=== PATIENT | female | born 1955 | race Caucasian/White ===

== ENCOUNTER → 2019-01-12 | Outpatient (CLI) | payer BC ==
--- NOTE | 2019-01-13 09:09 | MM ---
Reason for exam: clinical finding. History: Patient is postmenopausal. Physical Findings: Nurse Summary: 1.5cm nodule in the left breast at 10-11 o'clock (nurse kyara). MG 3D Diag Mammo W/Cad SERGEI Bilateral CC and MLO view(s) were taken. CV view(s) were taken of the left breast. There are scattered fibroglandular densities. Finding #1: There are multiple masses in both breasts. Finding #2: There are typically benign calcifications in both breasts. These results were verbally communicated with the patient and result sheet given to the patient on 01/12/19. ASSESSMENT: Incomplete: need additional imaging evaluation, BI-RAD 0 RECOMMENDATION: Ultrasound of both breasts.
--- NOTE | 2019-01-13 09:17 | USB ---
Reason for exam: additional evaluation requested from abnormal screening. History: Patient is postmenopausal. US Breast BILAT Right complete breast ultrasound includes all four quadrants, the retroareolar region and axilla. Finding demonstrates a 0.7 x 0.6 x 0.5cm questionable lipoma at 12 o'clock and a 0.7 x 0.8 x 0.5cm solid lesion at 3 o'clock. Left complete breast ultrasound includes all four quadrants, the retroareolar region and axilla. Finding demonstrates a 1.9 x 1.9 x 2.1cm solid lesion at 9 o'clock and a 0.4 x 0.3 x 0.2cm solid lesion at 9 o'clock. These results were verbally communicated with the patient and result sheet given to the patient on 01/12/19. ASSESSMENT: Suspicious, BI-RAD 4 RECOMMENDATION: Ultrasound core biopsy of both breasts. Called Dr. Zapata with mammographic findings and has scheduled an appointment for the patient for 01/27/19 at 10:[address] Coobs. Biopsy scheduled for 01/23/19 at 12:20. PRELIMINARY REPORT CALLED AND FAXED TO DR. COBOS ON 01/12/19.
== END ==
LOC: RADMAMWWP 12:39
PROVIDERS: ATTEND Internal Medicine
DX: N63.0 Unspecified lump in unspecified breast (principal); R92.8 Other abnormal and inconclusive findings on diagnostic imaging of breast
CPT/HCPCS: 77062; 77066

== ENCOUNTER → 2019-01-19 | Outpatient (CLI) | payer BC ==
[2019-01-19 12:18] VITALS: BP 123/79; PULSE 93; RESP 18; TEMP 98.3; BMI 30.7
--- NOTE | 2019-01-19 12:42 | P.GSHP ---
History of Present Illness H&P Date: 01/19/19 Chief Complaint: patient felt lump in left bresat The patient is a 63-year-old white female who was seen by her primary care doctor secondary to some nodularity in her left breast. It is located in the left inner lower area. She subsequently underwent a mammogram and bilateral breast ultrasounds. Her last mammogram was approximately 10 years ago. The mammogram revealed benign calcifications in both breasts, multiple nodularity in both breasts, and fibroglandular densities. She subsequently underwent bilateral breast ultrasounds. The right breast ultrasound revealed a 0.8 x 0.7 cm lesion at 3:00 The left breast ultrasound revealed a 1.9 1.9 cm lesion at 9:00 and a 0.4 x 0.2 cm solid lesion at 9:00. The patient states she has had some twinges of discomfort in the left breast near the area of the palpable change the face of this may be because she is checking that periodically to see if it's changed. The patient had no hsitory of trauma to the breast. She has had no infection in the breast. She has no changes of her nipples. She drinks 3-4 cups of coffee/day. She drinks diet pop daily. She does not smoke and is not exposed to secondhand smoke. She eats chocolate occasionally. Family History: maternal grandmother: colon cancer brother: colon cancer Hormonal History: menarche: 10 G6,P5, 1 stillborn, first at 29, breast fed: yes menopause: 54 BCP: none hormones: none Past surgical history: 1. D&C 2. Left breast fibroadenoma removed 3. Oral surgery for extra teeth Past Medical History: 1. depression/anxiety 2. DVT Social History: smoke: none alcohol: Occasional Drugs: Negative - Constitutional Constitutional: Denies chills, Denies fever - EENT Eyes: denies blurred vision, denies pain Ears: bilateral: tinnitus, deny: decreased hearing Ears, nose, mouth and throat: Denies headache, Denies sore throat - Breasts Breasts: bilateral: as per HPI - Cardiovascular Cardiovascular: Denies chest pain, Denies shortness of breath - Respiratory Respiratory: Denies cough, Denies 7 - Gastrointestinal Gastrointestinal: Denies abdominal pain, Denies diarrhea, Denies nausea, Denies vomiting - Genitourinary (Female) Genitourinary: Denies dysuria, Denies hematuria - Menstruation Menstruation: Reports postmenopausal - Musculoskeletal Comment: arthritis Musculoskeletal: Reports myalgias - Integumentary Integumentary: Denies pruritus, Denies rash - Neurological Neurological: Denies numbness, Denies weakness - Psychiatric Psychiatric: Reports anxiety, Reports depression - Endocrine Endocrine: Reports fatigue, Denies weight change - Hematologic/Lymphatic Comment: aspirin/day - Allergic/Immunologic Allergic/Immunologic: Reports seasonal allergies Past Medical History Additional Past Medical History / Comment(s): Hx of DVT X3 during pregnancies, took heparin History of Any Multi-Drug Resistant Organisms: None Reported Additional Past Surgical History / Comment(s): 1989 firoadenoma left breast surgery. 1999 Dilatation and curretagge Past Anesthesia/Blood Transfusion Reactions: No Reported Reaction Past Psychological History: Anxiety, Depression Smoking Status: Never smoker Past Alcohol Use History: Rare Past Drug Use History: None Reported Medications and Allergies Home Medications Medication Instructions Recorded Confirmed Type Sertraline [Zoloft] 50 mg PO DAILY 01/16/19 01/16/19 History Allergies Allergy/AdvReac Type Severity Reaction Status Date / Time No Known Allergies Allergy Verified 01/19/19 12:19 Surgical - Exam Vital Signs Temp Pulse Resp BP Pulse Ox 98.3 F 93 18 123/79 98 01/19/19 12:14 01/19/19 12:14 01/19/19 12:14 01/19/19 12:14 01/19/19 12:14 BMI 30.7 - General well developed, well nourished, no distress - Eyes normal ocular movement - ENT no hearing loss, no congestion - Neck no masses, trachea midline - Respiratory normal respiratory effort, clear to auscultation - Cardiovascular Rhythm: regular Heart Sounds: normal: S1, S2 - Abdomen Abdomen: soft, non tender, no guarding, no rigid, no rebound - Integumentary no abnormal pigmentation - Neurologic no disoriented, no combative - Musculoskeletal normal gait - Psychiatric oriented to time, oriented to person, oriented to place, speech is normal, memory intact Breast Exam: right breast exam: Multi-positional exam no dominant masses or nodules of concern, fibrocystic breast changes Right axilla: No adenopathy of concern Left breast: Multi-positional exam approximately 1.2 cm nodule freely movable in the lower inner quadrant of the left breast, fibrocystic changes, no other masses or nodules of concern Left axilla: No adenopathy of concern Results Mammogram and ultrasound results reviewed Assessment and Plan Assessment: Impression: 1. Abnormal mammogram bilateral breast 2. Abnormal ultrasound bilateral breast 3. Palpable nodule left breast 4. Fibrocystic breast changes 5. Family history of colon cancer 6. Anxiety/depression The risks and benefits of the procedure have been discussed with the patient. She understands and wishes to proceed. Plan: 1. Bilateral breast ultrasound core biopsy 2. Medical management of medical conditions 2. Follow-up approximately one week after biopsy CC: Dr. Zapata
== END ==
LOC: WWCWWP 11:57
PROVIDERS: ATTEND Surgery
DX: Z53.9 Procedure and treatment not carried out, unspecified reason (principal)

== ENCOUNTER → 2019-01-23 | Day surgery (SDC) | payer BC ==
[2019-01-23 13:22] VITALS: RESP 16; BMI 30.7
[2019-01-23 13:50] VITALS: BP 131/83; PULSE 71; TEMP 97.9
--- NOTE | 2019-01-23 16:35 | USB ---
EXAMINATION TYPE: US biopsy breast add'l VAD LT DATE OF EXAM: 01/23/2019 EXAMINATION TYPE: US biopsy breast VAD RT DATE OF EXAM: 01/23/2019 CLINICAL HISTORY: R92.8 ABN MAMMO. TECHNIQUE: Ultrasound guided core biopsy of right and left breast. COMPARISON: NONE FINDINGS: Preprocedure scanning was performed. A small hypoechoic area near the 9:00 position within the left breast corresponding to the previous findings could not be located on the current examination and this area was not attempted for biopsy. The procedure of ultrasound guided core biopsy was explained to the patient. Benefits, alternatives, and risks were discussed. An informed consent was then obtained. A timeout was performed. The patient was placed in supine positioning for imaging and for the procedure. The overlying skin was prepped and draped in usual sterile fashion. Lidocaine buffered with bicarbonate was used as anesthetic into the skin and subcutaneous tissue up to area of concern in the right breast. A adam was made with surgical scalpel. Under ultrasound guidance, a 12-gauge vacuum assisted biopsy gun device was used to obtain 6 core samples. Following this, a biopsy clip was left in lesion. Utilizing a separate set up for the left breast t patient was placed in supine positioning for imaging and for the procedure. The overlying skin was prepped and draped in usual sterile fashion. Lidocaine with epinephrine was used as anesthetic into the deeper breast tissue. Buffered lidocaine was utilized to anesthetize the skin. A adam was made with surgical scalpel. Under ultrasound guidance, a 12-gauge vacuum assisted biopsy gun device was used to obtain 6 core samples. Following this, a biopsy clip was left in lesion. The patient tolerated the procedure well without any immediate complication. The patient was kept in the radiology department for short stay after the procedure and then discharged home in stable condition. Postprocedure mammography was performed. Surgical clips are within the bilateral breasts. IMPRESSION: 1. Successful ultrasound-guided core biopsy 3:00 right breast, 9:00 left breast. Recommendations: 1. Recommendations are pending pathology results. Pathology Results: Malignant A. RIGHT BREAST AT 3:00 POSITION, NEEDLE CORE BIOPSIES: Infiltrating grade 2 adenocarcinoma consistent with infiltrating ductal carcinoma. Focal low grade DCIS. See Surgical Pathology Cancer Case Summary. Appropriately controlled immunohistochemical studies are positive for E- cadherin, Mammaglobin and ER. S100 and CK5/6 are negative in tumor cells. B. LEFT BREAST AT 9:00 POSITION, NEEDLE CORE BIOPSIES: Poorly differentiated adenocarcinoma with a dense lymphoid infiltrate consistent with infiltrating ductal carcinoma. See Surgical Pathology Cancer Case Summary. Appropriately controlled immunohistochemical studies are positive for E- cadherin. S100, Mammaglobin, ER and CK5/6 are negative in tumor cells. Recommendation Surgical consult of both breasts. MTDD
--- NOTE | 2019-01-24 07:56 | MM ---
Reason for exam: additional evaluation requested from abnormal screening. Last mammogram was performed less than 1 month ago. History: Patient is postmenopausal. MG Diagnostic Percy BI Wo CAD Bilateral CC and MLO view(s) were taken. Prior study comparison: January 12, 2019, bilateral MG 3d diag mammo w/cad SERGEI. ASSESSMENT: Post procedure mammogram for marker placement RECOMMENDATION: Ultrasound of both breasts in 6 months. PENDING PATHOLOGY RESULTS.
== END ==
LOC: RADUSWWP 11:09
PROVIDERS: ATTEND Surgery
DX: C50.811 Malignant neoplasm of overlapping sites of right female breast (principal)
CPT/HCPCS: 88305; 88342; 88341; 77066; 19083; 19084; A4648; J2001

== ENCOUNTER → 2019-01-27 | Outpatient (CLI) | payer BC ==
[2019-01-27 10:23] VITALS: BP 168/79; PULSE 86; RESP 20; TEMP 98.1; BMI 30.7
--- NOTE | 2019-01-27 11:53 | P.PN ---
Subjective Progress Note Date: 01/27/19 Principal diagnosis: Bilateral invasive breast cancer Right breast stage I a breast cancer Left breast stage IIa breast cancer The patient is a 63-year-old white female who presented for bilateral ultrasound-guided core biopsy. This was performed on . Pathology revealed the right side to be a T1 N0 M0 ER/OH positive HER-2/woodrow negative grade 2 stage I a breast cancer. The left side which was a palpable nodule was noted to be a T2 N0 M0 ER/OH positive. Positive HER-2 negative grade 3 stage IIA breast cancer. The patient has no complaints related to the procedure itself. The patient's is here with him and had a long discussion regarding possible treatment options. Treatment options range from lumpectomy plus radiation therapy plus bilateral sentinel node biopsies with possible bilateral axillary node dissections to bilateral mastectomy plus or minus reconstruction. The patient is not interested in lumpectomy. The patient wishes to have bilateral mastectomies with reconstruction. The patient is going to be scheduled to see the plastic surgeon. Risk and benefits of all the procedures have been discussed with the patient and her . It should be noted that her son is a family practice resident at [facility], a second son is just starting medical school, and future [id number] is a internal medicine resident. The pathology and treatment options will be discussed with her son as per the patient. Objective - Vital Signs Vital signs: Vital Signs Temp 98.1 F 01/27/19 10:20 Pulse 86 01/27/19 10:20 Resp 20 01/27/19 10:20 BP 168/79 01/27/19 10:20 Pulse Ox 95 01/27/19 10:20 Intake & Output 01/26/19 01/27/19 01/27/19 18:59 06:59 18:59 Weight 86.183 kg - Constitutional General appearance: Present: average body habitus - EENT Eyes: Present: EOMI ENT: Present: hearing grossly normal - Neck Neck: Present: normal ROM - Respiratory Respiratory: bilateral: CTA - Cardiovascular Rhythm: regular Heart sounds: normal: S1, S2 - Integumentary Integumentary Comment(s): Examination of the core biopsy sites reveal mild ecchymosis in each breast No evidence of hematoma No evidence of infection and the breast - Psychiatric Psychiatric: Present: A&O x's 3, appropriate affect, intact judgment & insight Assessment and Plan Assessment: Impression: 1. Patient with biopsy-proven bilateral invasive ductal breast cancer Right breast stage IA Left breast stage II a 2. Patient is going to have genetic testing performed and blood is being drawn today 3. Patient states no matter what the genetic testing and she wishes to have bilateral mastectomies 4. Patient has declined offered to meet with radiation therapy today 4. Patient understands that even if she hasn't mastectomy depending on lymph node status that it might be possible radiation would be recommended 5. History of anxiety/depression 6. Family history of colon cancer Plan: 1. Bilateral mastectomy with immediate reconstruction 2. Presentation at tumor board 3. Blood drawn for genetic testing 4. Medical clearance from Dr. Zapata Risk and benefits of the procedures have been discussed with the patient and her . They understand and wish to proceed with surgical intervention as soon as possible. Again options of lumpectomy plus radiation therapy versus mastectomy plus or minus reconstruction and sentinel node biopsy plus or minus axillary node dissection have been discussed in detail. Cc: Dr. Zapata
--- NOTE | 2019-02-14 10:04 | P.PN ---
Progress Note - Text Progress Note Date: 02/14/19 The patient's case was presented at tumor board this morning. There is recommendation that she be seen by medical oncology prior to operative intervention. There was concern that the patient may benefit from neoadjuvant chemotherapy. We've also discussed the fact that the patient has opted for bilateral mastectomy. I have called the patient and discussed this with her. She did have an appointment with medical oncology for tomorrow, however she canceled that appointment. I discussed that the neoadjuvant chemotherapy may shrink the tumor and as it is close to the chest wall this may make the operative procedure better for her. I've also discussed again the fact that she is a candidate for breast conserving surgery. I discussed with her that receiving chemotherapy prior to operative intervention would be singleton secondary to the fact that it may shrink the tumor and it is close to the chest wall, and additionally that the patient would not have the risk of chemotherapy delayed secondary to wound healing which is a potential risk of undergoing bilateral mastectomies and reconstruction. I have offered to speak to family members including her son who is a physician. The patient at this time declined all of the above. She wishes to proceed with operative intervention next week. Ida Ignacio, our nurse in women's breast cancer was present for the conversation.
== END ==
LOC: WWCWWP 09:47
PROVIDERS: ATTEND Surgery
DX: Z53.9 Procedure and treatment not carried out, unspecified reason (principal)

== ENCOUNTER → 2019-02-21 | Outpatient (CLI) | payer BC ==
--- NOTE | 2019-02-22 08:31 | ECHOF ---
Referral Reason:C50.311 Breast Ca, Z01.818 Pre Chemo MEASUREMENTS -------- HEIGHT: 167.6 cm WEIGHT: 90.7 kg BP: RVIDd: 2.7 cm (< 3.3) IVSd: 1.0 cm (0.6 - 1.1) LVIDd: 4.5 cm (3.9 - 5.3) LVPWd: 1.1 cm (0.6 - 1.1) IVSs: 1.6 cm LVIDs: 2.3 cm LVPWs: 1.6 cm LAESV Index (A-L): 23.63 ml/m Ao Diam: 2.8 cm (2.0 - 3.7) AV Cusp: 1.8 cm (1.5 - 2.6) LA Diam: 2.8 cm (2.7 - 3.8) MV EXCURSION: 14.230 mm (> 18.000) MV EF SLOPE: 70 mm/s (70 - 150) EPSS: 0.4 cm MV E Dominic: 0.65 m/s MV DecT: 143 ms MV A Dominic: 1.10 m/s MV E/A Ratio: 0.59 AR PHT: 206 ms RAP: 5.00 mmHg RVSP: 26.13 mmHg FINDINGS -------- Sinus rhythm. This was a technically good study. The left ventricular size is normal. Left ventricular wall thickness is normal. Overall left vent ricular systolic function is normal with, an EF between 55 - 60 %. The right ventricle is normal in size. Normal LA size by volume 22+/-6 ml/m2. The right atrial size is normal. Interatrial and interventricular septum intact. The aortic valve is trileaflet and appears structurally normal. Trace amount of aortic regurgitatio n. The mitral valve is normal. There is trace mitral regurgitation. The tricuspid valve appears structurally normal. Mild tricuspid regurgitation present. There is n o evidence of pulmonary hypertension. The right ventricular systolic pressure, as measured by Doppl er, is 26.13mmHg. There is no pulmonic regurgitation present. The aortic root size is normal. Normal inferior vena cava with normal inspiratory collapse consistent with estimated right atrial pre ssure of 5 mmHg. There is no pericardial effusion. CONCLUSIONS -------- 1. Sinus rhythm. 2. This was a technically good study. 3. The left ventricular size is normal. 4. Left ventricular wall thickness is normal. 5. Overall left ventricular systolic function is normal with, an EF between 55 - 60 %. 6. The right ventricle is normal in size. 7. Normal LA size by volume 22+/-6 ml/m2. 8. The right atrial size is normal. 9. Interatrial and interventricular septum intact. 10. The aortic valve is trileaflet and appears structurally normal. 11. Trace amount of aortic regurgitation. 12. The mitral valve is normal. 13. There is trace mitral regurgitation. 14. The tricuspid valve appears structurally normal. 15. Mild tricuspid regurgitation present. 16. There is no evidence of pulmonary hypertension. 17. The right ventricular systolic pressure, as measured by Doppler, is 26.13mmHg. 18. There is no pulmonic regurgitation present. 19. The aortic root size is normal. 20. Normal inferior vena cava with normal inspiratory collapse consistent with estimated right atrial pressure of 5 mmHg. 21. There is no pericardial effusion. CAFE WORKER: Yamile Atkinson RDCS
== END | disposition home or self-care (01) ==
LOC: RADECHMAIN 13:01
PROVIDERS: ATTEND Internal Medicine Hematology & Oncology
DX: Z01.818 Encounter for other preprocedural examination (principal); I07.1 Rheumatic tricuspid insufficiency; C50.311 Malignant neoplasm of lower-inner quadrant of right female breast; C50.312 Malignant neoplasm of lower-inner quadrant of left female breast
CPT/HCPCS: 93306

== ENCOUNTER 2019-02-22 09:37 | Day surgery (SDC) | payer BC ==
--- NOTE | 2019-02-22 08:03 | P.GSHP ---
History of Present Illness H&P Date: 02/22/19 CHIEF COMPLAINT: Breast cancer HISTORY OF PRESENT ILLNESS: The patient is a 63-year-old female diagnosed with breast cancer. She needs a Mediport placement for chemotherapy. PAST MEDICAL HISTORY: See list PAST SURGICAL HISTORY: See list CURRENT MEDICATIONS: See list. ALLERGIES: See list. SOCIAL HISTORY: No active tobacco or alcohol use. FAMILY HISTORY: Noncontributory. REVIEW OF ORGAN SYSTEMS: CONSTITUTIONAL: Has weight loss. PHYSICAL EXAMINATION: Vital signs: Stable GENERAL: Well developed and in no acute distress. Pleasant. HEENT: No sclera icterus. Extraocular movements grossly intact. Moist buccal mucosa. Head is atraumatic, normocephalic. Hears conversational speech. No nasal drainage. NECK: Supple without lymphadenopathy. No JV distention. CHEST: Non-labored respirations and equal bilateral excursions. CARDIOVASCULAR: Regular rate and rhythm. Palpable 2+ radial pulses. ABDOMEN: Nontender. MUSCULOSKELETAL: No clubbing, cyanosis or edema. NEUROLOGIC: No focal or lateralizing signs. PSYCH: Appropriate affect. Alert and oriented to person, place and time. ASSESSMENT: 1. Breast cancer, bilateral 2. Need for chemotherapeutic access. PLAN: 1. Agree with Port-A-Cath placement. Past Medical History Past Medical History: Cancer, Deep Vein Thrombosis (DVT), Osteoarthritis (OA) Additional Past Medical History / Comment(s): Hx of DVT X3 during pregnancies, took heparin History of Any Multi-Drug Resistant Organisms: None Reported Additional Past Surgical History / Comment(s): BILATERAL NEEDLE LOC BREAST. 1989 firoadenoma left breast surgery. 1999 Dilatation and curretagge Past Anesthesia/Blood Transfusion Reactions: No Reported Reaction Past Psychological History: Anxiety, Depression Smoking Status: Never smoker Past Alcohol Use History: Rare Past Drug Use History: None Reported - Past Family History Brother(s) Family Medical History: Deep Vein Thrombosis (DVT) Son(s) Family Medical History: Deep Vein Thrombosis (DVT) Additional Family Medical History / Comment(s): FACTOR FIVE 11 Medications and Allergies Home Medications Medication Instructions Recorded Confirmed Type Sertraline [Zoloft] 50 mg PO QAM 01/16/19 02/21/19 History Aspirin [Adult Low Dose Aspirin EC] 81 mg PO DAILY 02/21/19 02/21/19 History Allergies Allergy/AdvReac Type Severity Reaction Status Date / Time No Known Allergies Allergy Verified 02/21/19 08:43
[~2019-02-22 09:37] MED LIST: DEXAMETHASONE SOD PHOSPHATE 10 MG/ML 1 ML VIAL IV ONE; LIDOCAINE 1% 20 ML VIAL (10MG/ML) FOR IV START INTRADERMA PRN; MIDAZOLAM 2 MG/2 ML VIAL IV PRN; Pre Op ABX Message 1 EACH MISC MISCELLANE ONE; ceFAZolin IN SWFI 2 GM/20 ML SYRINGE IVP ONE; fentaNYL (PF) 50 MCG/ML 2 ML AMP IV PRN
[2019-02-22] MEDS ORDERED: fentaNYL (PF) 50 MCG/ML 2 ML AMP ONE (10:20)
[2019-02-22] MEDS ORDERED: PROPOFOL 10 MG/ML 20 ML VIAL IV ONE (10:20)
[2019-02-22] MEDS ORDERED: LIDOCAINE 1% INJ 10MG/ML (20 ML MDV) ONE (10:20)
[2019-02-22] MEDS ORDERED: MIDAZOLAM 2 MG/2 ML VIAL ONE (10:20)
[2019-02-22 10:21] VITALS: RESP 16; TEMP 98.2
[2019-02-22] MEDS: LACTATED RINGERS 1,000 ML IV SCH ×2 (10:24→10:33)
[2019-02-22] MEDS ORDERED: ONDANSETRON 4 MG/2 ML VIAL IVP ONE (10:24)
[2019-02-22] MEDS ORDERED: LIDOCAINE 1% 20 ML VIAL (10MG/ML) FOR IV START INTRADERMA ONE (10:24)
[2019-02-22] MEDS ORDERED: HEPARIN SODIUM,PORCINE 10,000 UNIT/ML 1 ML VIAL IV ONE (11:03)
[2019-02-22] MEDS ORDERED: HEPARIN SODIUM,PORCINE 100 UNIT/ML 5 ML VIAL IV ONE (11:03)
[2019-02-22] MEDS ORDERED: BUPIVACAIN-EPI 0.5%-1:200,000 30 ML VIAL SQ ONE ×3 (11:04→11:06)
--- NOTE | 2019-02-22 11:46 | P.OP ---
Date of Procedure: 02/22/19 Description of Procedure: SURGEON: HARPER DIAL MD TRAFFIC CONTROL SIGNALER: None. PREOPERATIVE DIAGNOSES: 1. Breast cancer 2. Need for chemotherapeutic access. 3. Obesity due to excess calories, BMI 32.3 4. Anxiety 5. History of multiple lower leg DVTs 6. Depressive disorder POSTOPERATIVE DIAGNOSES: 1. Breast cancer 2. Need for chemotherapeutic access. 3. Obesity due to excess calories, BMI 32.3 4. Anxiety 5. History of multiple lower leg DVTs 6. Depressive disorder PROCEDURES PERFORMED: 1. Ultrasound guided central venous access of the right internal jugular venous vein. 2. Fluoroscopic guidance for central venous access right internal jugular vein less than 1 seconds. 3. Placement of right internal jugular power port 6 Syriac by CipherApps, Xcela Plus Port ANESTHESIA: IV sedation with local. ESTIMATED BLOOD LOSS: 2 mL. SPECIMENS REMOVED: None. COMPLICATIONS: None. INDICATIONS: The patient is a 63-year-old female recently diagnosed with breast cancer. She presents for chemotherapeutic access. Benefits and risks of surgical intervention were described including bleeding, infection, mechanical problems with his port. Informed consent was obtained. DESCRIPTION OR PROCEDURE: Patient was brought into the operating room, laid in supine position. After adequate IV sedation, the chest and right neck were prepped and draped in a standard sterile fashion including the shoulder with ChloraPrep. Timeout protocol was confirmed with the surgical team regarding the patient's name, procedure to be performed including preoperative medications for which she received IV antibiotics. Bilateral SCDs were placed. An ultrasound was used to capture views of the right internal jugular vein including right carotid artery, which was patent and without thrombus along its course. The right IJ was then localized using anesthetic for the skin. A 16 Syriac needle was used to access the IJ. A guidewire was advanced into the IJ with dark nonpulsatile venous blood. Two fingerbreadths distal to the clavicle, on the lateral third, a transverse 1.5 to 2 cm incision was deepened into the skin after localizing the skin. A pocket was created for the port. The port on the back table was flushed with heparinized saline and then attached to the catheter tubing. An adapter was fastened to the actual port site over the tubing. The port easily had fit snug into the pocket. A subcutaneous tunneler was placed along the open end of the tubing and brought out through the separate stab incision. Fluoroscopic guidance confirmed no kinking along the tubing and the port site. Next, the J-wire was exchanged for a catheter sheath for which the tubing was cut to 20 cm and then advanced through the catheter sheath. The Peel-away sheath was then removed and the tubing was secured at the junction of the superior vena cava as well as the right atrium. The tubing was found to be crossed however functional. This was all done under fluoroscopic guidance under 1 seconds. Easy pullback as well as return and aspiration was obtained of the port site. The skin incision was closed using layers using 3-0 Vicryl for the subcu followed by 4-0 Monocryl in a running subcuticular fashion. At the stick site this was also reapproximated using 4-0 Monocryl. The incisions were covered with Optifoam, The skin was cleansed and Exofin liquid glue was applied. Optifoam dressing was placed over the port site. A total of 20 mL of local anesthetic was placed. At the end of the procedure, needle, sponge, and instrument count was verified correct by customer data technician. Heparin lock of 5 mL was placed. The patient was awoken and pain free and taken to the second stage postanesthesia care unit. The patient tolerated the procedure well. FINDINGS: 1. No thrombus encountered along the right carotid artery or internal jugular vein. 2. Access of the right internal jugular vein under ultrasound guidance. 3. Fluoroscopy of less than 1 seconds. Plan - Discharge Summary Discharge Rx Participant: No New Discharge Prescriptions: New Acetaminophen [Tylenol] 325 mg PO Q4H #10 tab No Action Sertraline [Zoloft] 50 mg PO QAM Aspirin [Adult Low Dose Aspirin EC] 81 mg PO DAILY Discharge Medication List Sertraline [Zoloft] 50 mg PO QAM 01/16/19 [History] Aspirin [Adult Low Dose Aspirin EC] 81 mg PO DAILY 02/21/19 [History] Acetaminophen [Tylenol] 325 mg PO Q4H #10 tab 02/22/19 [Rx] Follow up Appointment(s)/Referral(s): Harper Dial MD [STAFF PHYSICIAN] - As Needed Patient Instructions/Handouts: Implanted Venous Access Port (DC), How to Care for Your Implanted Venous Access Port (DC) Activity/Diet/Wound Care/Special Instructions: Remove dressing 02/25/19. May shower. No bathtub soaks. No lifting over 10 pounds right arm for 1 week. Do not raise right arm over shoulder to prevent malfunction of your port. Take Tylenol as needed for pain. Discharge Disposition: HOME SELF-CARE
--- NOTE | 2019-02-22 12:12 | XR ---
EXAMINATION TYPE: XR chest 1V confirm line [facility] DATE OF EXAM: 02/22/2019 COMPARISON: NONE HISTORY: Status post Port-A-Cath placement. TECHNIQUE: Single frontal view of the chest is obtained. FINDINGS: Right-sided Mediport terminates in the distal superior vena cava. No postprocedural pneumo thorax is seen. Minimal strand-like bibasilar atelectasis is present. No focal consolidation, pleural effusion or pneumothorax. Cardia mediastinal silhouette is mildly enlarged. No acute osseous patholo gy. IMPRESSION: Right-sided Mediport terminating in the distal superior vena cava with no postprocedural pneumothorax.
[2019-02-22 12:13] VITALS: BP 14/764; PULSE 72
--- NOTE | 2019-02-22 13:29 | FL ---
EXAMINATION TYPE: FL guided central line placemt HISTORY: Fluoroscopy time Impression: 1. Fluoroscopy support of 1 second provided to the referring physician.
== END 2019-02-22 12:45 | disposition home or self-care (01) ==
LOC: OR 09:37
PROVIDERS: ATTEND Surgery Plastic and Reconstructive Surgery
DX: C50.919 Malignant neoplasm of unspecified site of unspecified female breast (principal); M19.90 Unspecified osteoarthritis, unspecified site; Z86.718 Personal history of other venous thrombosis and embolism; F41.9 Anxiety disorder, unspecified; F32.9 Major depressive disorder, single episode, unspecified; E66.9 Obesity, unspecified; Z68.32 Body mass index [BMI] 32.0-32.9, adult; Z79.82 Long term (current) use of aspirin; Z79.899 Other long term (current) drug therapy
CPT/HCPCS: 77001

== ENCOUNTER → 2019-04-27 | Outpatient (CLI) | payer BC ==
--- NOTE | 2019-04-27 15:37 | P.PN ---
Subjective Progress Note Date: 04/27/19 The patient is a 63-year-old white female who was seen by her primary care doctor secondary to some nodularity in her left breast. It is located in the left inner lower area. She subsequently underwent a mammogram and bilateral breast ultrasounds. Her last mammogram was approximately 10 years ago. The mammogram revealed benign calcifications in both breasts, multiple nodularity in both breasts, and fibroglandular densities. She subsequently underwent bilateral breast ultrasounds. The right breast ultrasound revealed a 0.8 x 0.7 cm lesion at 3:00 The left breast ultrasound revealed a 1.9 1.9 cm lesion at 9:00 and a 0.4 x 0.2 cm solid lesion at 9:00. The patient states she has had some twinges of discomfort in the left breast near the area of the palpable change the face of this may be because she is checking that periodically to see if it's changed. The patient had no hsitory of trauma to the breast. She has had no infection in the breast. She has no changes of her nipples. Pathology on the right revealed a T1 N0 M0 ER/[place] positive HER-2/woodrow negative grade 2 stage IA breast cancer. The left side revealed a T2 N0 M0 ER/[place] positive HER-2/woodrow negative grade 3 stage IIA breast cancer. After presentation at tumor board and discussion with the patient and her family she opted for neoadjuvant chemotherapy. She has strongly more courses of chemotherapy to complete. She is doing well with the chemotherapy. She has lost her hair. She is planning for bilateral mastectomy, and bilateral reconstruction. This has been tentatively scheduled for July. Family History: maternal grandmother: colon cancer brother: colon cancer patient has not had a colonoscopy Hormonal History: menarche: 10 G6,P5, 1 stillborn, first at 29, breast fed: yes menopause: 54 BCP: none hormones: none Past surgical history: 1. D&C 2. Left breast fibroadenoma removed 3. Oral surgery for extra teeth Past Medical History: 1. depression/anxiety 2. DVT Social History: smoke: none alcohol: Occasional Drugs: Negative - Constitutional Constitutional: Denies chills, Denies fever - EENT Eyes: denies blurred vision, denies pain Ears: bilateral: tinnitus, deny: decreased hearing Ears, nose, mouth and throat: Denies headache, Denies sore throat - Breasts Breasts: bilateral: as per HPI - Cardiovascular Cardiovascular: Denies chest pain, Denies shortness of breath - Respiratory Respiratory: Denies cough, Denies 7 - Gastrointestinal Gastrointestinal: Denies abdominal pain, Denies diarrhea, Denies nausea, Denies vomiting; the patient does experience some diarrhea and some nausea immediately after the chemotherapy - Genitourinary (Female) Genitourinary: Denies dysuria, Denies hematuria - Menstruation Menstruation: Reports postmenopausal - Musculoskeletal Comment: arthritis Musculoskeletal: Reports myalgias - Integumentary Integumentary: Denies pruritus, Denies rash - Neurological Neurological: Denies numbness, Denies weakness - Psychiatric Psychiatric: Reports anxiety, Reports depression - Endocrine Endocrine: Reports fatigue, Denies weight change - Hematologic/Lymphatic Comment: aspirin/day - Allergic/Immunologic Allergic/Immunologic: Reports seasonal allergies Past Medical History Additional Past Medical History / Comment(s): Hx of DVT X3 during pregnancies, took heparin History of Any Multi-Drug Resistant Organisms: None Reported Additional Past Surgical History / Comment(s): 1989 firoadenoma left breast surgery. 1999 Dilatation and curretagge Past Anesthesia/Blood Transfusion Reactions: No Reported Reaction Past Psychological History: Anxiety, Depression Smoking Status: Never smoker Past Alcohol Use History: Rare Past Drug Use History: None Reported Objective - Vital Signs Vital signs: Vital Signs Temp 98.5 F 04/27/19 15:23 Pulse 80 04/27/19 15:23 Resp 18 04/27/19 15:23 BP 148/74 04/27/19 15:23 Pulse Ox 97 04/27/19 15:23 - Exam BMI 32.3 - Constitutional General appearance: Present: obese - EENT Eyes: Present: EOMI ENT: Present: hearing grossly normal - Neck Neck: Present: normal ROM - Respiratory Respiratory: bilateral: CTA - Cardiovascular Rhythm: regular Heart sounds: normal: S1, S2 - Gastrointestinal General gastrointestinal: Present: soft - Integumentary Integumentary: Present: normal turgor - Musculoskeletal Musculoskeletal: Present: gait normal - Psychiatric Psychiatric: Present: A&O x's 3, appropriate affect, intact judgment & insight - Additional findings Additional findings: Breast exam: Right breast: Multi-positional exam no discrete dominant masses or nodules of concern, fibrocystic changes Right axilla: No adenopathy of concern Left breast: Multi-positional exam no dominant masses or nodules of concern at this time, prior there was a 1.2 cm lesion in the lower inner quadrant of the left breast which is no longer palpable. Left axilla: No adenopathy of concern Assessment and Plan Assessment: Impression: 1. depression/anxiety 2. DVT 3. Bilateral breast cancer with neoadjuvant chemotherapy excellent response patient in the left breast is no longer palpable 4. obesity Plan: 1. Plan for surgical intervention after last chemotherapy which is approximately June 14 2. Repeat presentation at tumor board 3. Medical clearance The patient previously wish for bilateral mastectomy and reconstruction she is still leaning in that direction and we will have further discussion after she completes her chemotherapy. CC: Dr. Clay
== END | disposition home or self-care (01) ==
DX: Z53.9 Procedure and treatment not carried out, unspecified reason (principal)

== ENCOUNTER → 2019-06-02 | Outpatient (CLI) | payer BC ==
--- NOTE | 2019-06-02 13:58 | XR ---
EXAMINATION TYPE: XR Hip Bilateral Complete DATE OF EXAM: 06/02/2019 COMPARISON: NONE HISTORY: Pain history of breast cancer TECHNIQUE: 2 views submitted FINDINGS: There is no evidence of erosive change or acute fracture. Concentric narrowing of the joint space with hypertrophic change of the acetabulum greater on the rig ht. No definite destructive changes are seen. IMPRESSION: 1. Arthropathy correlate for femoral acetabular impingement bilaterally. No diagnostic evidence of me tastases. If high clinical suspicion correlate with bone scan.
== END | disposition home or self-care (01) ==
LOC: RADXRMAIN 13:35
PROVIDERS: ATTEND Internal Medicine Hematology & Oncology
DX: C50.312 Malignant neoplasm of lower-inner quadrant of left female breast (principal); C50.311 Malignant neoplasm of lower-inner quadrant of right female breast; F41.1 Generalized anxiety disorder; Z71.3 Dietary counseling and surveillance
CPT/HCPCS: 73521

== ENCOUNTER → 2019-06-29 | Outpatient (CLI) | payer BC ==
[2019-06-29 15:00] VITALS: BP 137/80; PULSE 97; RESP 18; TEMP 98.2; BMI 32.3
--- NOTE | 2019-06-29 15:43 | P.GSHP ---
History of Present Illness H&P Date: 06/29/19 Chief Complaint: Bilateral breast cancer Mariam is a 64-year-old white female who was initially seen in January 2019. At that time she had been noted to have some nodularity in her left breast. She subsequently underwent a mammogram and bilateral breast ultrasounds. The lata mogram revealed benign calcifications in both breast and multiple nodularity in both breasts with fibroglandular densities. She subsequently underwent bilateral breast ultrasounds. The right breast ultrasound revealed a 0.8 posterior 0.7 cm lesion at 3:00 in the left breast ultrasound revealed a 1.9 cm lesion at 9:00 and is 0.4 x 0.2 cm solid lesion at 9:00 the patient underwent bilateral ultrasound core biopsy. The right breast lesion wasn't infiltrating grade 2 adenocarcinoma consistent with infiltrating ductal carcinoma. There was focal low-grade DCIS as well. The left breast cancer at 9:00 revealed poorly differentiated adenocarcinoma with dense lymphoid infiltrate consistent with infiltrating ductal carcinoma. The right breast tumor was positive for ER and NC and negative for HER-2/woodrow the left breast tumor was negative for ER/NC and positive for HER-2/woodrow. The patient underwent neoadjuvant chemotherapy including herceptin and perjeta. She had an excellent response with the palpable lesion in the left breast becoming nonpalpable. Patient has finished her chemotherapy and is now ready to undergo for surgical intervention. She initially considered bilateral mastectomy. At this time would like to undergo bilateral lumpectomy with sentinel node biopsy possible axillary node dissection. The patient is having low back and hip pain. She did have radiographic evaluation at [facility] and reportedly there was no evidence of metastatic disease. Family history: Paternal grandmother: Colon cancer Brother: Colon cancer History: Menarche: 10 , 1 stillborn, first at 29, press-fit: Yes Menopause: 54 control pills: None Hormones: None Past surgical history: 1. D&C 2. Left breast fibroadenoma removed 3. Oral surgery for extra teeth Medical history: 1. Depression/and side. 2. DVT Social history: Smoke: Negative Alcohol: Occasional Drugs: Negative - Constitutional Constitutional: Denies chills, Denies fever - EENT Eyes: denies blurred vision, denies pain Ears: deny: decreased hearing, tinnitus Ears, nose, mouth and throat: Denies headache, Denies sore throat - Breasts Breasts: bilateral: as per HPI - Cardiovascular Cardiovascular: Denies chest pain, Denies shortness of breath - Respiratory Respiratory: Denies cough, Denies 7 - Gastrointestinal Gastrointestinal: Denies abdominal pain, Denies diarrhea, Denies nausea, Denies vomiting - Genitourinary (Female) Genitourinary: Denies dysuria, Denies hematuria - Menstruation Menstruation: Reports postmenopausal - Musculoskeletal Comment: lumbar spine and hip pain, to have physical therapy, Musculoskeletal: Reports myalgias - Integumentary Integumentary: Denies pruritus, Denies rash - Neurological Comment: Peripheral neuropathy in the feet and hands Neurological: Reports numbness, Denies weakness - Psychiatric Psychiatric: Reports anxiety, Reports depression - Endocrine Endocrine: Reports fatigue, Denies weight change - Hematologic/Lymphatic Comment: baby aspirin - Allergic/Immunologic Allergic/Immunologic: Reports seasonal allergies Past Medical History Additional Past Medical History / Comment(s): Hx of DVT X3 during pregnancies, took heparin History of Any Multi-Drug Resistant Organisms: None Reported Additional Past Surgical History / Comment(s): BILATERAL NEEDLE LOC BREAST. 1989 firoadenoma left breast surgery. 1999 Dilatation and curretagge Past Anesthesia/Blood Transfusion Reactions: No Reported Reaction Past Psychological History: Anxiety, Depression Smoking Status: Never smoker Past Alcohol Use History: Rare Past Drug Use History: None Reported Medications and Allergies Home Medications Medication Instructions Recorded Confirmed Type Sertraline [Zoloft] 50 mg PO QAM 01/16/19 06/29/19 History Aspirin [Adult Low Dose Aspirin EC] 81 mg PO DAILY 02/21/19 06/29/19 History Acetaminophen [Tylenol] 325 mg PO Q4H #10 tab 02/22/19 06/29/19 Rx Allergies Allergy/AdvReac Type Severity Reaction Status Date / Time No Known Allergies Allergy Verified 02/22/19 10:26 Surgical - Exam Vital Signs Temp Pulse Resp BP Pulse Ox 98.2 F 97 18 137/80 97 06/29/19 14:57 06/29/19 14:57 06/29/19 14:57 06/29/19 14:57 06/29/19 14:57 BMI 32.3 - General obese - Eyes normal ocular movement - ENT no hearing loss, no congestion - Neck no masses, trachea midline - Respiratory normal respiratory effort, clear to auscultation - Cardiovascular Rhythm: regular Heart Sounds: normal: S1, S2 - Abdomen Abdomen: soft - Integumentary normal turgor - Neurologic no disoriented, no combative - Musculoskeletal difficulty with gait related to low back pain, and right hip - Psychiatric oriented to time, oriented to person, oriented to place, speech is normal, memory intact Breast examination: Right breast: Multiple positional exam no dominant masses or nodules of concern, fibrocystic changes Right axilla: No adenopathy of concern Left breast: Multi-positional exam no dominant masses or nodules of concern, no evidence of tumor is palpable at this time Left axilla: No adenopathy of concern Assessment and Plan Assessment: Impression: 1. Bilateral invasive ductal breast cancer 2. Fibrocystic breast changes 3. Neoadjuvant chemotherapy with excellent response 4. Back and right hip pain 5. Depression/anxiety 6. History of DVT 7. X-rays of right hip no evidence of metastatic disease, 06-02-19 Plan: 1. Medical clearance by Dr. Mallory 2. Patient to receive physical therapy 3 right hip x-ray results 4. low back x-rays to be reviewed Risks and benefits of the surgery have been discussed with the patient. She understands and wishes to proceed. Risks include possibility of bleeding and infection reaction to the anesthetic. The possibility of positive margins and possible need for reexcision. The sentinel node biopsy will be most likely evaluated on permanent section. If we are suspicious we may consider frozen section evaluation in which case if positive nodemay do an axillary node dissection. Again she understands the risks of this which include possible decreased sensation to the inner arm. And possibility of injury to the thoracodorsal and long thoracic nerves. with winging of hte scapua. Initially we had discussed possible mastectomy with reconstruction however after the neoadjuvant chemotherapy the patient has opted for bilateral lumpectomies. CC: Kayla
== END | disposition home or self-care (01) ==
LOC: WWCWWP 14:47
PROVIDERS: ATTEND Surgery
DX: Z53.9 Procedure and treatment not carried out, unspecified reason (principal)

== ENCOUNTER 2019-07-18 07:05 | Day surgery (SDC) | payer BC ==
[2019-07-14 11:24] VITALS: BMI 32.3
[~2019-07-18 07:05] MED LIST changes: +HEPARIN SODIUM,PORCINE 5,000 UNIT/ML 1 ML VIAL SQ ONE; +HYDROmorphone 0.5 MG/0.5 ML SYRINGE IVP PRN; -LIDOCAINE 1% 20 ML VIAL (10MG/ML) FOR IV START INTRADERMA PRN; +ONDANSETRON 4 MG/2 ML VIAL IVP ONE; -ceFAZolin IN SWFI 2 GM/20 ML SYRINGE IVP ONE; -fentaNYL (PF) 50 MCG/ML 2 ML AMP IV PRN
[2019-07-18] MEDS: LACTATED RINGERS 1,000 ML IV SCH ×2 (07:34→10:58)
[2019-07-18] MEDS ORDERED: ALPRAZolam 0.25 MG TAB PO ONE (07:39)
[2019-07-18] MEDS ORDERED: LIDOCAINE 1% INJ 10MG/ML (20 ML MDV) SQ ONE ×2 (08:05→08:55)
--- NOTE | 2019-07-18 09:50 | NM ---
EXAMINATION TYPE: NM sentinel node injection DATE OF EXAM: 07/18/2019 COMPARISON: Exams dated 01/12/2019 through 01/23/2019 HISTORY: Bilateral breast cancer TECHNIQUE AND FINDINGS: The procedure of sentinel lymph node injection was explained to the patient. The benefits, alternatives, and risks were discussed. An informed consent was then obtained. Prepr ocedural timeout was performed. Overlying skin is cleaned with sterile alcohol. Following this, 494 uCi Tc99m Tilmanocept was inject ed in the upper outer aspect of the right nipple intradermally. The patient tolerated the procedure well without any immediate complication. The patient was kept in the radiology department for short stay after the procedure and then taken to surgery for surgical p rocedure what is presumed intraoperative gamma probe will be used for sentinel lymph node detection. IMPRESSION: Right breast radiotracer injection for sentinel node localization as above.
--- NOTE | 2019-07-18 09:51 | NM ---
EXAMINATION TYPE: NM sentinel node injection DATE OF EXAM: 07/18/2019 COMPARISON: Exams dated 01/12/2019 through 01/23/2019 HISTORY: Bilateral breast cancer TECHNIQUE AND FINDINGS: The procedure of sentinel lymph node injection was explained to the patient. The benefits, alternatives, and risks were discussed. An informed consent was then obtained. Prepr ocedural timeout was performed. Overlying skin is cleaned with sterile alcohol. Following this, 492 uCi Tc99m Tilmanocept was inject ed in the upper outer aspect of the left nipple intradermally. The patient tolerated the procedure well without any immediate complication. The patient was kept in the radiology department for short stay after the procedure and then taken to surgery for surgical p rocedure what is presumed intraoperative gamma probe will be used for sentinel lymph node detection. IMPRESSION: Left breast radiotracer injection for sentinel node localization as above.
[2019-07-18] MEDS ORDERED: HEPARIN SODIUM,PORCINE 5,000 UNIT/ML 1 ML VIAL SQ ONE (10:24)
--- NOTE | 2019-07-18 10:26 | P.NAPBC ---
NAPBC Queries - NAPBC Queries Was patient's case review presented at [facility] tumor board? If no, comment.: Yes Was patient's pathology reviewed at [facility]? If no, comment.: Yes Was breast conservation surgery offered? If no, comment.: Yes Was sentinel node biopsy offered? If no, comment.: Yes Was diagnosis confirmed by percutaneous core biopsy? If no, comment.: Yes Is patient mastectomy patient?: No Was a preop referral to reconstructive surgeon offered?: No [facility] Comments: bilateral breast cancer, right stage 1A, left stage 2A Clinical Stage: Pathology on the right revealed a T1 N0 M0 ER/[place] positive HER-2/woodrow negative grade 2 stage IA breast cancer. The left side revealed a T2 N0 M0 ER/DE positive HER-2/woodrow negative grade 3 stage IIA breast cancer. After presentation at tumor board and discussion with the patient and her family she opted for neoadjuvant
[2019-07-18] MEDS ORDERED: LIDOCAINE 1% INJ 10MG/ML (20 ML MDV) ONE (10:57)
[2019-07-18] MEDS ORDERED: PROPOFOL 10 MG/ML 20 ML VIAL IV ONE (10:57)
[2019-07-18] MEDS ORDERED: MIDAZOLAM 2 MG/2 ML VIAL ONE (10:57)
[2019-07-18] MEDS ORDERED: HYDROmorphone (PF) 1 MG/ML ONE (10:57)
[2019-07-18] MEDS ORDERED: SODIUM CHLORIDE 0.9% 100 ML BAG ONE (10:57)
[2019-07-18] MEDS ORDERED: PHENYLEPHRINE-0.9% NACL SYG 1 MG/10 ML SYRINGE ONE (10:57)
[2019-07-18] MEDS ORDERED: SUCCINYLCHOLINE CHLORIDE 100 MG/5 ML SYR IV ONE (10:57)
[2019-07-18] MEDS ORDERED: fentaNYL (PF) 50 MCG/ML 2 ML AMP ONE (10:57)
[2019-07-18] MEDS ORDERED: ceFAZolin 1,000 MG VIAL ONE (10:57)
[2019-07-18] MEDS ORDERED: DEXTROSE 5% IV STA ×2 (11:45)
[2019-07-18] MEDS ORDERED: METHYLENE BLUE IV STA ×2 (11:45)
[2019-07-18] MEDS ORDERED: WATER IV STA ×2 (11:45)
[2019-07-18] MEDS ORDERED: LACTATED RINGERS 1,000 ML IV ONE (14:15)
--- NOTE | 2019-07-18 14:25 | P.OP ---
Date of Procedure: 07/18/19 Preoperative Diagnosis: Bilateral breast cancer Postoperative Diagnosis: Same Procedure(s) Performed: Bilateral sentinel node biopsy and lumpectomy with onco plastic tissue transfer Anesthesia: AGNES Surgeon: Jacqueline Thornton Estimated Blood Loss (ml): 10 IV fluids (ml): 1,000 Pathology: other (Bilateral sentinel nodes, bilateral lumpectomy specimens) Condition: stable Disposition: same day Indications for Procedure: bilateral biopsy proven breast cancer Operative Findings: bilateral fatty lymph nodes, bilateral dense breast tissue Description of Procedure: The patient is a 64-year-old white female with biopsy-proven bilateral breast cancer. She received neoadjuvant chemotherapy. She is now ready for bilateral lumpectomy and bilateral sentinel node biopsy. Preoperatively the patient was seen in the radiology department where bilateral needle localization was performed. Additionally bilateral. Periareolar foci in injection was performed for sentinel node retrieval. The patient was taken to the operating room and following induction of general anesthesia both axillas were interrogated with the neoprobe. The radioactive counts in the right axilla was hard to detect and therefore was determined to use methylene blue for lymphatic mapping. 5 mL of quarter percent methylene blue were injected into the periareolar area. The breast was massaged for 3 minutes. The breast breast and axilla were prepped and draped in sterile fashion. The right breast was approached initially. An incision was made in the axilla and carried down to the axillary contents. Upon carrying it down to the axillary contents a radioactive blue lymph node was identified. The 10 second count on the radioactive node was 23,068, the background count was approximately 14. The patient did not have any other palpable adenopathy of concern on that side. After discussion with pathology it was felt that the best to forego frozen section and for permanent section. The wound was well irrigated. No evidence of bleeding was identified. Several deep 3-0 Vicryl sutures were placed. This was followed by a 4-0 Monocryl skin suture and Steri-Strips. The area of the breast lesion was approached. A circumareolar incision was made. The breast tissue was dissected free from the skin and following it medially to the area of insertion of the needle. The needle was identified and the shaft was brought into the wound. The tissue was grasped using an Allis clamp. Circumferential resection was performed down to the pectoralis major muscle. The specimen was removed and painted for orientation. Following this radiograph the specimen revealed the area of concern had been removed. Titanium clips were placed. The tissue was mobilized between the skin and the breast tissue and the subcu tenia is playing as well as on the pectoralis muscle. Approximately 20 mL of tissue was mobilized. The tissue was brought together and secured using a 3- 0 Vicryl suture. The skin was closed using 4-0 Monocryl. The patient tolerated this portion of the procedure in stable condition. All instruments and gowns and gloves were changed. The left breast was then approached. The left axilla was approached initially. Using the neoprobe the area of greatest radioactivity was identified. Incision was made in the axilla carried through the skin and subcutaneous tissue to the axillary contents. This was grasped using an Allis clamp. Using the Harmonic body incision was performed. The radioactive lymph node had a 10 second count of 4457. The background count was approximately 14. The deep tissues were closed using a Vicryl suture following irrigation. The skin was closed using a 4-0 Monocryl. The area of the breast was then approached. Secondary to the medial location it was felt that it would be best to make a incision directly over the needle. An incision was made and carried through the skin and subcutaneous tissue down to the breast tissue. The dissection was performed to the shaft of the needle which was brought out through the incision. The tissue was grasped using an Allis clamp and circumferential dissection was performed down to the area of the pectoralis major muscle. Specimen was removed and painted for orientation. Radiograph of the specimen revealed the area of concern had been removed. The tissues were mobilized between the skin and breast tissue in the subcutaneous plane as well as on the pectoralis muscle. Superior and inferior flaps were mobilized and secured together in the midline using a Vicryl suture. This filled the defect well. Approximately 20 mL of tissue was mobilized. Following this the skin was closed using a deep 4-0 Vicryl suture followed by 4-0 Monocryl. Steri-Strips were applied. The patient tolerated the procedure in stable condition. All instrument and sponge counts were correct at the end of the case.
--- NOTE | 2019-07-18 14:27 | P.DS ---
Providers Attending physician: Jacqueline Thornton Primary care physician: Poonam Garza Plan - Discharge Summary Discharge Rx Participant: No New Discharge Prescriptions: No Action Sertraline [Zoloft] 50 mg PO QAM Aspirin [Adult Low Dose Aspirin EC] 81 mg PO DAILY Acetaminophen [Tylenol] 325 mg PO Q4H #10 tab Multivitamins, Thera [Multivitamin (formulary)] 1 tab PO DAILY Discharge Medication List Sertraline [Zoloft] 50 mg PO QAM 01/16/19 [History] Aspirin [Adult Low Dose Aspirin EC] 81 mg PO DAILY 02/21/19 [History] Acetaminophen [Tylenol] 325 mg PO Q4H #10 tab 02/22/19 [Rx] Multivitamins, Thera [Multivitamin (formulary)] 1 tab PO DAILY 07/14/19 [History] Follow up Appointment(s)/Referral(s): Jacqueline Thornton MD [STAFF PHYSICIAN] - 1 Week Activity/Diet/Wound Care/Special Instructions: Do not drive today Wear bra at all times Discharge Disposition: HOME SELF-CARE
--- NOTE | 2019-07-18 14:29 | MM ---
EXAMINATION TYPE: MG pre op needle loc LT, MG pre op needle loc RT, MG surgical specimen RT, MG surgical specimen LT DATE OF EXAM: 07/18/2019 COMPARISON: Exams dated 01/12/2019 through 01/23/2019 HISTORY: Bilateral breast cancer TECHNIQUE: Needle localization with wire placement and surgical excision of the biopsy-proven bilateral breast cancer after treatment with neoadjuvant chemotherapy. FINDINGS: The procedure of needle localization with wire placement and than surgical excision was explained to the patient. Benefits, alternatives, and risks were discussed. An informed consent was then obtained. Preprocedural timeout was performed. Site A: The shortest pathway for procedure was chosen. Shortest pathway was medial to lateral approach. The overlying skin was prepped and draped in usual sterile fashion. 10 cc of 1% lidocaine was used as anesthetic into the skin and subcutaneous tissue up to the level of area of concern. A 5 cm needle was used. It was placed via a medial collateral approach under mammographic guidance. Subsequent 90 degrees mammogram show the needle to be in satisfactory position relative to the targeted area. At this point, wire was placed and the needle was withdrawn. The wire was fixed to patient's skin. Images were marked for surgeon. Site B: The shortest pathway for procedure was chosen. Shortest pathway was medial to lateral approach. The overlying skin was prepped and draped in usual sterile fashion. 10 cc of 1% lidocaine was used as anesthetic into the skin and subcutaneous tissue up to the level of area of concern. A 5 cm needle was used. It was placed via a medial to lateral approach under mammographic guidance. Subsequent 90 degrees mammogram show the needle to be in satisfactory position relative to the targeted area. At this point, wire was placed and the needle was withdrawn. The wire was fixed to patient's skin. Images were marked for surgeon. The patient tolerated the procedure well without any immediate complication. The patient was kept in the radiology department for short stay after the procedure and then taken to surgery for surgical excision. Targeted bilateral biopsy markers demarcating the known biopsy-proven bilateral breast carcinoma and wire are identified in specimen mammogram. Findings were communicated with the OR by Brii (poultry process worker) at 1402 p.m. on 07/18/2019. The patient was kept in hospital for short stay after the procedure and then discharged home in stable condition. IMPRESSION: Successful, uncomplicated needle localization with wire placement and surgical excision of bilateral biopsy markers demarcating the known biopsy- proven bilateral breast carcinoma, full pathology results to follow. Pathology Results: Malignant A. RIGHT BREAST, SENTINEL LYMPH NODE, BIOPSY: One lymph node negative for metastatic adenocarcinoma as demonstrated on H+E as well as appropriately controlled immunohistochemical studies for Cytokeratin 7 and IRISH. B. RIGHT BREAST TISSUE, LUMPECTOMY: 0.7 x 0.4 x 0.4 cm well differentiated (Grade 1) adenocarcinoma measuring approximately 0.55 cm from the closest black or blue inked margins of resection. Surrounding breast parenchyma: Atypical duct hyperplasia and intraductal papillomatosis. See note. C. LEFT BREAST, SENTINEL LYMPH NODE: One lymph node replaced by fat with slight subcapsular fibrosis negative for metastatic adenocarcinoma by H+E as well as appropriately controlled immunohistochemical studies for Cytokeratin 7 and IRISH. D. LEFT BREAST, AXILLARY CONTENTS: Two lymph nodes negative for metastatic disease. E. LEFT BREAST, LUMPECTOMY: Focal residual lobular carcinoma in situ and stromal changes consistent with prior breast biopsy cavity. See Surgical Pathology Cancer Case Summary and note. Recommendation Surgical consult of both breasts. DENISED
[2019-07-18 14:48] VITALS: TEMP 97
[2019-07-18 15:35] VITALS: RESP 18
[2019-07-18] MEDS ORDERED: HYDROcodone/APAP 5-325MG 1 EACH TAB PO ONE (16:04)
[2019-07-18 16:24] VITALS: BP 136/71; PULSE 80
== END 2019-07-18 17:00 | disposition home or self-care (01) ==
LOC: OR 07:05
PROVIDERS: ATTEND Surgery
DX: N60.91 Unspecified benign mammary dysplasia of right breast (principal); D24.1 Benign neoplasm of right breast; F32.9 Major depressive disorder, single episode, unspecified; F41.9 Anxiety disorder, unspecified; Z86.718 Personal history of other venous thrombosis and embolism; Z92.21 Personal history of antineoplastic chemotherapy; Z80.0 Family history of malignant neoplasm of digestive organs; Z79.82 Long term (current) use of aspirin; Z79.899 Other long term (current) drug therapy
CPT/HCPCS: 19301; 38525; 88342; 88307; 88341; 76098 ×2; 38792; A9520; J2250; J1644; J1100; J2405; J0690; J2001; J3010; J1170; J2370; J0330; J2704

== ENCOUNTER → 2019-08-03 | Outpatient (CLI) | payer BC ==
[2019-08-03 14:59] VITALS: BP 118/71; PULSE 87; RESP 18; TEMP 97.8; BMI 32.3
--- NOTE | 2019-08-03 15:31 | P.PN ---
Subjective Progress Note Date: 08/03/19 Principal diagnosis: Mariam is a 64-year-old white female who was diagnosed with a right breast stage I a cancer, and her left breast stage II a cancer in January of 2019. She underwent neoadjuvant chemotherapy and subsequently underwent a bilateral lumpectomy and bilateral sentinel node biopsy. Pathology did not reveal any cancer in the sentinel nodes, and the patient in the right breast lumpectomy specimen had a 0.7 cm well-differentiated grade 1 adenocarcinoma approximately 0.55 cm from the closest margin. In the left breast and no residual cancer was identified. The patient is presently taking Herceptin. And following the Herceptin she will be placed on an aromatase inhibitor. Additionally she is going to start radiation therapy in approximately 2 weeks. Physical examination: Lungs: Clear Heart: Regular rate and rhythm Right breast: Incision clean and dry, axillary incision clean and dry Left breast: Incision clean and dry Left axilla: Incision clean and dry Impression/Plan 1. Patient doing well status post bilateral breast lumpectomy and sentinel node biopsies 2. Patient continuing on Herceptin 3. Patient to start aromatase inhibitor following the radiation therapy and Herceptin 4. Radiation therapy in 2 weeks 5. Patient to follow up here in 1 month Cc: Dr. Mulligan Objective - Vital Signs Vital signs: Vital Signs Temp 97.8 F 08/03/19 14:57 Pulse 87 08/03/19 14:57 Resp 18 08/03/19 14:57 BP 118/71 08/03/19 14:57 Pulse Ox 96 08/03/19 14:57 Intake & Output 08/02/19 08/03/19 08/03/19 18:59 06:59 18:59 Weight 90.718 kg
== END | disposition home or self-care (01) ==
LOC: WWCWWP 14:51
PROVIDERS: ATTEND Surgery
DX: Z53.9 Procedure and treatment not carried out, unspecified reason (principal)

== ENCOUNTER → 2019-08-15 | Outpatient (CLI) | payer BC ==
--- NOTE | 2019-08-16 09:58 | ECHOF ---
Referral Reason:C50.312 Breast Ca MEASUREMENTS -------- HEIGHT: 167.6 cm WEIGHT: 90.7 kg BP: 129/65 RVIDd: 2.7 cm (< 3.3) IVSd: 1.0 cm (0.6 - 1.1) LVIDd: 4.6 cm (3.9 - 5.3) LVPWd: 1.0 cm (0.6 - 1.1) IVSs: 1.6 cm LVIDs: 3.1 cm LVPWs: 1.5 cm LA Diam: 2.9 cm (2.7 - 3.8) LAESV Index (A-L): 18.39 ml/m Ao Diam: 3.3 cm (2.0 - 3.7) AV Cusp: 2.0 cm (1.5 - 2.6) MV EXCURSION: 15.293 mm (> 18.000) MV EF SLOPE: 78 mm/s (70 - 150) EPSS: 0.6 cm MV E Dominic: 0.65 m/s MV DecT: 256 ms MV A Dominic: 0.84 m/s MV E/A Ratio: 0.77 AR PHT: 593 ms RAP: 5.00 mmHg RVSP: 27.02 mmHg TAPSE: 24.34 mm FINDINGS -------- Sinus rhythm with extra systolic beats. This was a technically adequate study. The left ventricular size is normal. Left ventricular wall thickness is normal. Overall left vent ricular systolic function is normal with, an EF between 60 - 65 %. The diastolic filling pattern is normal for the age of the patient 10.10. The right ventricle is normal in size. Normal LA size by volume 22+/-6 ml/m2. The right atrium is normal in size. Interatrial and interventricular septum intact. The aortic valve is trileaflet and appears structurally normal. There is mild aortic regurgitation. Mild mitral regurgitation is present. Mild tricuspid regurgitation present. Right ventricular systolic pressure is normal at < 35 mmHg. The pulmonic valve was not well visualized. The aortic root size is normal. Normal inferior vena cava with normal inspiratory collapse consistent with estimated right atrial pre ssure of 5 mmHg. There is no pericardial effusion. CONCLUSIONS -------- 1. Sinus rhythm with extra systolic beats. 2. This was a technically adequate study. 3. The left ventricular size is normal. 4. Left ventricular wall thickness is normal. 5. Overall left ventricular systolic function is normal with, an EF between 60 - 65 %. 6. The diastolic filling pattern is normal for the age of the patient 10.10 7. The right ventricle is normal in size. 8. Normal LA size by volume 22+/-6 ml/m2. 9. The right atrium is normal in size. 10. Interatrial and interventricular septum intact. 11. The aortic valve is trileaflet and appears structurally normal. 12. There is mild aortic regurgitation. 13. Mild mitral regurgitation is present. 14. Mild tricuspid regurgitation present. 15. Right ventricular systolic pressure is normal at < 35 mmHg. 16. The pulmonic valve was not well visualized. 17. The aortic root size is normal. 18. Normal inferior vena cava with normal inspiratory collapse consistent with estimated right atrial pressure of 5 mmHg. 19. There is no pericardial effusion. JIG AND FIXTURE REPAIRER: Tala Holguin RDCS
== END | disposition home or self-care (01) ==
LOC: RADECHMAIN 14:57
PROVIDERS: ATTEND Internal Medicine Hematology & Oncology
DX: Z01.818 Encounter for other preprocedural examination (principal); C50.312 Malignant neoplasm of lower-inner quadrant of left female breast; I08.3 Combined rheumatic disorders of mitral, aortic and tricuspid valves
CPT/HCPCS: 93306

== ENCOUNTER → 2020-02-05 | Outpatient (CLI) | payer BC ==
--- NOTE | 2020-02-06 09:00 | ECHOF ---
Referral Reason:C50.312 Breast CA Z01.818 Chemo exposure MEASUREMENTS -------- HEIGHT: 167.6 cm WEIGHT: 90.7 kg BP: RVIDd: 2.4 cm (< 3.3) IVSd: 1.3 cm (0.6 - 1.1) LVIDd: 3.1 cm (3.9 - 5.3) LVPWd: 1.5 cm (0.6 - 1.1) IVSs: 2.0 cm LVIDs: 2.3 cm LVPWs: 2.0 cm LAESV Index (A-L): 26.84 ml/m Ao Diam: 3.5 cm (2.0 - 3.7) AV Cusp: 1.9 cm (1.5 - 2.6) MV EXCURSION: 14.577 mm (> 18.000) MV EF SLOPE: 70 mm/s (70 - 150) EPSS: 0.6 cm MV E Dominic: 0.74 m/s MV DecT: 194 ms MV A Dominic: 0.83 m/s MV E/A Ratio: 0.89 AR PHT: 583 ms RAP: 5.00 mmHg RVSP: 39.25 mmHg FINDINGS -------- Sinus rhythm. This was a technically adequate study. The left ventricular size is normal. There is mild concentric left ventricular hypertrophy. Overa ll left ventricular systolic function is normal with, an EF between 55 - 60 %. The diastolic fillin g pattern is normal for the age of the patient 12.53. The right ventricle is normal in size. Normal LA size by volume 22+/-6 ml/m2. The right atrium was not well visualized. Interatrial and interventricular septum intact. There is mild aortic valve sclerosis. Trace amount of aortic regurgitation. There is no evidence of aortic stenosis. There is trace mitral regurgitation. Mild tricuspid regurgitation present. There is mild pulmonary hypertension. The right ventricular systolic pressure, as measured by Doppler, is 39.25mmHg. There is no pulmonic regurgitation present. The aortic root size is normal. IVC Not well visulized. There is no pericardial effusion. CONCLUSIONS -------- 1. Sinus rhythm. 2. This was a technically adequate study. 3. The left ventricular size is normal. 4. There is mild concentric left ventricular hypertrophy. 5. Overall left ventricular systolic function is normal with, an EF between 55 - 60 %. 6. The diastolic filling pattern is normal for the age of the patient 12.53 7. The right ventricle is normal in size. 8. Normal LA size by volume 22+/-6 ml/m2. 9. The right atrium was not well visualized. 10. Interatrial and interventricular septum intact. 11. There is mild aortic valve sclerosis. 12. Trace amount of aortic regurgitation. 13. There is no evidence of aortic stenosis. 14. There is trace mitral regurgitation. 15. Mild tricuspid regurgitation present. 16. There is mild pulmonary hypertension. 17. The right ventricular systolic pressure, as measured by Doppler, is 39.25mmHg. 18. There is no pulmonic regurgitation present. 19. The aortic root size is normal. 20. IVC Not well visulized. 21. There is no pericardial effusion. ESTHETICS INSTRUCTOR: Cecilia Angela RDCS
== END | disposition home or self-care (01) ==
LOC: RADECHMAIN 10:58
PROVIDERS: ATTEND Internal Medicine Hematology & Oncology
DX: I51.7 Cardiomegaly (principal); I08.3 Combined rheumatic disorders of mitral, aortic and tricuspid valves; I27.20 Pulmonary hypertension, unspecified; C50.312 Malignant neoplasm of lower-inner quadrant of left female breast; Z01.818 Encounter for other preprocedural examination; Z91.048 Other nonmedicinal substance allergy status
CPT/HCPCS: 93306

== ENCOUNTER → 2020-07-11 | Outpatient (CLI) | payer BC ==
--- NOTE | 2020-07-11 14:31 | MM ---
Reason for exam: additional evaluation requested from prior study. Last mammogram was performed 1 year and 6 months ago. History: Patient is postmenopausal and has history of breast cancer at age 64. Malignant MG pre op needle loc LT of the left breast, July 18, 2019. Malignant MG pre op needle loc RT of the right breast, July 18, 2019. Lumpectomy of the left breast, July 18, 2019. Lumpectomy of the right breast, July 18, 2019. Malignant US biopsy breast add'l VAD LT of the left breast, January 23, 2019. Malignant US biopsy breast VAD RT of the right breast, January 23, 2019. Physical Findings: Nurse Summary: 1.5cm nodule in the right breast at 2 o'clock (nurse TM). MG 3D Diag Mammo W/Cad SERGEI Bilateral CC and MLO view(s) were taken. Spot compression CC view(s) were taken of the left breast. Prior study comparison: January 23, 2019, bilateral MG diagnostic markel BI wo CAD. January 12, 2019, bilateral MG 3d diag mammo w/cad SERGEI. There are scattered fibroglandular densities. Bilateral post surgical changes. No significant new findings when compared with previous films. These results were verbally communicated with the patient and result sheet given to the patient on 07/11/20. ASSESSMENT: Benign, BI-RAD 2 RECOMMENDATION: Ultrasound of the left breast in 3 months.
--- NOTE | 2020-07-11 14:34 | USB ---
Reason for exam: additional evaluation requested from prior study. History: Patient is postmenopausal and has history of breast cancer at age 64. Malignant MG pre op needle loc LT of the left breast, July 18, 2019. Malignant MG pre op needle loc RT of the right breast, July 18, 2019. Lumpectomy of the left breast, July 18, 2019. Lumpectomy of the right breast, July 18, 2019. Malignant US biopsy breast add'l VAD LT of the left breast, January 23, 2019. Malignant US biopsy breast VAD RT of the right breast, January 23, 2019. US Breast BILAT Left complete breast ultrasound includes all four quadrants, the retroareolar region and axilla. Finding demonstrates a 2.3 x 2.0 x 0.2cm fluid at 7 o'clock, may be internal nodules. Right complete breast ultrasound includes all four quadrants, the retroareolar region and axilla. Finding demonstrates post surgical dense/scar tissue, no mass at 3 o'clock. These results were verbally communicated with the patient and result sheet given to the patient on 07/11/20. ASSESSMENT: Probably benign, BI-RAD 3 RECOMMENDATION: Ultrasound of the left breast in 3 months.
== END | disposition home or self-care (01) ==
LOC: RADMAMWWP 10:24
PROVIDERS: ATTEND Surgery
DX: Z08 Encounter for follow-up examination after completed treatment for malignant neoplasm (principal); Z85.3 Personal history of malignant neoplasm of breast
CPT/HCPCS: 77062; 77066

== ENCOUNTER → 2020-07-12 | Outpatient (CLI) | payer BC ==
[2020-07-12 15:06] VITALS: BP 131/84; PULSE 87; RESP 16; TEMP 98.5
--- NOTE | 2020-07-12 15:16 | P.PN ---
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 At that time she had been noted to have some nodularity in her left breast. She subsequently underwent a mammogram and bilateral breast ultrasounds. The mammogram revealed benign calcifications in both breast and multiple nodularity in both breasts with fibroglandular densities. She subsequently underwent bilateral breast ultrasounds. The right breast ultrasound revealed a 0.8 posterior 0.7 cm lesion at 3:00 in the left breast ultrasound revealed a 1.9 cm lesion at 9:00 and is 0.4 x 0.2 cm solid lesion at 9:00 the patient underwent bilateral ultrasound core biopsy. The right breast lesion wasn't infiltrating grade 2 adenocarcinoma consistent with infiltrating ductal carcinoma. There was focal low-grade DCIS as well. The left breast cancer at 9:00 revealed poorly differentiated adenocarcinoma with dense lymphoid infiltrate consistent with infiltrating ductal carcinoma. The right breast tumor was positive for ER and HI and negative for HER-2/woodrow the left breast tumor was negative for ER/HI and positive for HER-2/woodrow. The patient underwent neoadjuvant chemotherapy including herceptin and perjeta. She had an excellent response with the palpable lesion in the left breast becoming nonpalpable. Patient finished her chemotherapy underwent for surgical intervention. She initially considered bilateral mastectomy. However, she underwent bilateral lumpectomy and sentinal node biopsy on July 18, 2020. Pathology did not reveal any tumor in the sentinel lymph nodes. In the right breast lumpectomy specimen had a 0.7 cm well-differentiated grade 1 adenocarcinoma proximally 0.55 cm from the closest margin. In the left breast there was no residual cancer identified. The patient finished Herceptin in February of this year. She had bilateral radiation therapy which she finished in September. She is on an antiestrogen medication at this time. She is not concerned about any lumps masses or nodules in her breast. She does not complain of any breast pain. She is not had any complaints of any nipple discharge or skin changes of her progress. She underwent a bilateral mammogram on . This revealed no lesions of concern in the right breast in the left breast and ultrasound was recommended and ultrasound was performed on the same day which revealed a 2.3 x 2 cm fluid collection at the 7 o'clock position this was felt to be most likely related to postoperative changes of a benign BIRADS 3 and ultrasound of the left breast in 3 months was recommended. Family history: Paternal grandmother: Colon cancer Brother: Colon cancer History: Menarche: 10 , 1 stillborn, first at 29, press-fit: Yes Menopause: 54 control pills: None Hormones: None Past surgical history: 1. D&C 2. Left breast fibroadenoma removed 3. Oral surgery for extra teeth 4. Bilateral lumpectomy and sentinel node biopsy Medical history: 1. Depression/anxiety. 2. DVT Social history: Smoke: Negative Alcohol: Occasional Drugs: Negative - Constitutional Constitutional: Denies chills, Denies fever - EENT Eyes: denies blurred vision, denies pain Ears: deny: decreased hearing, tinnitus Ears, nose, mouth and throat: Denies headache, Denies sore throat - Breasts Breasts: bilateral: as per HPI - Cardiovascular Cardiovascular: Denies chest pain, Denies shortness of breath - Respiratory Respiratory: Denies cough - Gastrointestinal Gastrointestinal: Denies abdominal pain, Denies diarrhea, Denies nausea, Denies vomiting - Genitourinary (Female) Genitourinary: Denies dysuria, Denies hematuria - Menstruation Menstruation: Reports postmenopausal - Musculoskeletal Comment: lumbar spine and hip pain, to have physical therapy, Musculoskeletal: Reports myalgias - Integumentary Integumentary: Denies pruritus, Denies rash - Neurological Comment: Peripheral neuropathy in the feet and hands Neurological: Reports numbness, Denies weakness - Psychiatric Psychiatric: Reports anxiety, Reports depression - Endocrine Endocrine: Reports fatigue, Denies weight change - Hematologic/Lymphatic Comment: baby aspirin - Allergic/Immunologic Allergic/Immunologic: Reports seasonal allergies Objective - Exam BMI 33.1 - Constitutional General appearance: Present: average body habitus - EENT Eyes: Present: EOMI ENT: Present: hearing grossly normal - Neck Neck: Present: normal ROM - Respiratory Respiratory: bilateral: CTA - Cardiovascular Rhythm: regular Heart sounds: normal: S1, S2 - Gastrointestinal General gastrointestinal: Present: soft - Integumentary Integumentary: Present: normal turgor - Musculoskeletal Musculoskeletal: Present: gait normal - Psychiatric Psychiatric: Present: A&O x's 3, appropriate affect, intact judgment & insight - Additional findings Additional findings: breast exam: BRA: 40C inspection: Port in place right chest wall, well-healed scars bilateral breast from prior surgery Palpation: Right breast: Multi-positional exam fibrocystic changes no dominant mass or nodules of concern, well-healed scar from prior surgery no evidence of recurrent cancer Right axilla: No adenopathy of concern Left breast: Multi-positional exam fibrocystic changes, no dominant masses or nodules of concern, well-healed scars from. This surgery Evidence of recurrent cancer Left axilla, no adenopathy of concern Assessment and Plan Assessment: Impression: 1. Patient status post bilateral mastectomy and sentinel node biopsy for stage I a right breast cancer and stage IIA left breast cancer in January 2019 2. Patient status post chemotherapy, positively on estrogen receptor mona 3. Patient status post radiation therapy 4. Patient with Port-A-Cath still in place would like to have this removed 5. Status post recent bilateral mammogram and ultrasound, ultrasound of the left breast in 3 months recommended Plan: 1. Port-A-Cath removal 2. Continue estrogen mona 3. Patient to follow up here in 3 months time Cc: Dr. Garza encounter 25 minutes, > 50% of time in planning and counselling
== END | disposition home or self-care (01) ==
LOC: WWCWWP 14:52
PROVIDERS: ATTEND Surgery
DX: Z53.9 Procedure and treatment not carried out, unspecified reason (principal)

== ENCOUNTER → 2020-10-14 | Outpatient (CLI) | payer BC ==
--- NOTE | 2020-10-15 08:06 | USB ---
Reason for exam: follow-up at short interval from prior study. History: Patient is postmenopausal and has history of breast cancer at age 64. Malignant MG pre op needle loc LT of the left breast, July 18, 2019. Malignant MG pre op needle loc RT of the right breast, July 18, 2019. Lumpectomy of the left breast, July 18, 2019. Lumpectomy of the right breast, July 18, 2019. Malignant US biopsy breast add'l VAD LT of the left breast, January 23, 2019. Malignant US biopsy breast VAD RT of the right breast, January 23, 2019. Physical Findings: Nurse Summary: bilateral thick, movable (nurse dw). US Breast Limited LT Left limited breast ultrasound including focal area of concern, retroareolar and axilla demonstrates a 1.4 x 0.3 x 1.7cm fluid collection at 7 o'clock, decreased in size from 07/11/20, suspect resolving seroma. These results were verbally communicated with the patient and result sheet given to the patient on 10/14/20. ASSESSMENT: Benign, BI-RAD 2 RECOMMENDATION: Follow-up diagnostic mammogram of both breasts in 9 months. Back on schedule for July 2021.
== END | disposition home or self-care (01) ==
LOC: RADUSWWP 14:21
PROVIDERS: ATTEND Surgery
DX: Z08 Encounter for follow-up examination after completed treatment for malignant neoplasm (principal); Z85.3 Personal history of malignant neoplasm of breast

== ENCOUNTER → 2021-07-30 | Outpatient (CLI) | payer BC ==
--- NOTE | 2021-08-06 08:34 | MM ---
Reason for exam: additional evaluation requested from prior study. Last mammogram was performed 1 year and 1 month ago. History: Patient is postmenopausal and has history of breast cancer at age 64. Malignant MG pre op needle loc LT of the left breast, July 18, 2019. Malignant MG pre op needle loc RT of the right breast, July 18, 2019. Lumpectomy of the left breast, July 18, 2019. Lumpectomy of the right breast, July 18, 2019. Malignant US biopsy breast add'l VAD LT of the left breast, January 23, 2019. Malignant US biopsy breast VAD RT of the right breast, January 23, 2019. Physical Findings: Nurse did not find any significant physical abnormalities on exam. MG 3D Diag Mammo W/Cad SERGEI Bilateral CC and MLO view(s) were taken. XCCL view(s) were taken of the right breast. Prior study comparison: July 11, 2020, bilateral MG 3d diag mammo w/cad SERGEI. January 23, 2019, bilateral MG diagnostic markel BI wo CAD. New indeterminate calcifications right breast. Biopsy recommended. Post operative changes bilateral breast. Stable skin thickening. These results were verbally communicated with the patient and result sheet given to the patient on 07/30/21. ASSESSMENT: Suspicious, BI-RAD 4 RECOMMENDATION: Stereotactic core biopsy of both breasts. Called office with mammographic findings and has scheduled an appointment for the patient for 09/12/21 at 2:[address] Thornton. Biopsy scheduled for 09/04/21 at 8:00. PRELIMINARY REPORT CALLED AND FAXED TO DR. THORNTON ON 08/06/21.
== END | disposition home or self-care (01) ==
LOC: RADMAMWWP 14:08
PROVIDERS: ATTEND Surgery
DX: R92.8 Other abnormal and inconclusive findings on diagnostic imaging of breast (principal); Z80.3 Family history of malignant neoplasm of breast
CPT/HCPCS: 77062; 77066

== ENCOUNTER 2021-09-04 08:00 | Day surgery (SDC) | payer BC ==
[2021-09-04 07:52] VITALS: RESP 16
[2021-09-04 09:09] VITALS: BP 131/67; PULSE 67; TEMP 98.1
--- NOTE | 2021-09-04 09:09 | P.PCN ---
Date of Procedure: 09/04/21 Preoperative Diagnosis: Microcalcifications of concern right breast Postoperative Diagnosis: Same Procedure(s) Performed: Stereotactic core biopsy right breast Anesthesia: local Surgeon: Jacqueline Thornton Pathology: other (Breast tissue/radiograph of specimen reveals microcalcifications of concern) Condition: stable Disposition: same day Indications for Procedure: Microcalcifications of concern right breast Operative Findings: Radiographic specimen reveals microcalcifications of concern Description of Procedure: Mariam is a 66-year-old white female who was noted on a mammogram of [phone] of microcalcifications of concern in the right breast. Stereotactic core biopsy was recommended. Alternatives such as watchful waiting or open biopsy were considered but not recommended. Risks and benefits of the procedure were discussed with the patient. She wished to proceed with stereotactic core biopsy. Risk include but are not limited to bleeding, infection, reaction to the anesthetic. The patient was taken to stereotactic core biopsy room. She was positioned prone on the lower rad table. A roofing contractor film was obtained. The area of concern was identified. A CC from below approach was utilized. The area was targeted. Following this the breast was prepped using Betadine. 20 mL of 1% lidocaine were used to anesthetize the area of concern. A 9-gauge vacuum-assisted core rotating biopsy needle was driven to the correct coordinates. Prefire films were obtained. The needle was noted to be in the correct location. The needle was fired. Post fire films were obtained. The needle was noted to be in the correct location. 14 core biopsies were obtained. Radiograph of the specimen revealed microcalcifications of concern were obtained. A secure jacoby Top-bowling ball grader and marker was placed. The patient tolerated the procedure in stable condition. The specimen was sent to pathology. The patient will follow-up with Dr. Lebron next week.
== END 2021-09-04 09:30 | disposition home or self-care (01) ==
LOC: RADMAMWWP 08:00
PROVIDERS: ATTEND Surgery
DX: R92.0 Mammographic microcalcification found on diagnostic imaging of breast (principal)
CPT/HCPCS: 88305; 19081; J2001

== ENCOUNTER → 2021-09-04 | Outpatient (CLI) | payer BC ==
--- NOTE | 2021-09-04 08:15 | P.PN ---
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 At that time she had been noted to have some nodularity in her left breast. She subsequently underwent a mammogram and bilateral breast ultrasounds. The mammogram revealed benign calcifications in both breast and multiple nodularity in both breasts with fibroglandular densities. She subsequently underwent bilateral breast ultrasounds. The right breast ultrasound revealed a 0.8 posterior 0.7 cm lesion at 3:00 in the left breast ultrasound revealed a 1.9 cm lesion at 9:00 and is 0.4 x 0.2 cm solid lesion at 9:00 the patient underwent bilateral ultrasound core biopsy. The right breast lesion was infiltrating grade 2 adenocarcinoma consistent with infiltrating ductal carcinoma. There was focal low-grade DCIS as well. The left breast cancer at 9:00 revealed poorly differentiated adenocarcinoma with dense lymphoid infiltrate consistent with infiltrating ductal carcinoma. The right breast tumor was positive for ER and SD and negative for HER-2/woodrow the left breast tumor was negative for ER/SD and positive for HER-2/woodrow. The patient underwent neoadjuvant chemotherapy including herceptin and perjeta. She had an excellent response with the palpable lesion in the left breast becoming nonpalpable. Patient finished her chemotherapy underwent for surgical intervention. She initially considered bilateral mastectomy. However, she underwent bilateral lumpectomy and sentinal node biopsy on July 18, 2020. Pathology did not reveal any tumor in the sentinel lymph nodes. In the right breast lumpectomy specimen had a 0.7 cm well-differentiated grade 1 adenocarcinoma proximally 0.55 cm from the closest margin. In the left breast there was no residual cancer identified. The patient finished Herceptin. She had bilateral radiation therapy. She was on an antiestrogen medication but stopped this secondary to bone pain. She is not concerned about any lumps masses or nodules in her breast. She does not complain of any breast pain. She is not had any complaints of any nipple discharge or skin changes of her progress. She had a bilateral mammogram on [phone]. This revealed new indeterminate calcifications in the right breast. Biopsy was recommended. Additionally Family history: Paternal grandmother: Colon cancer Brother: Colon cancer patient: bilateral breast cancer History: Menarche: 10 , 1 stillborn, first at 29, press-fit: Yes Menopause: 54 control pills: None Hormones: None Past surgical history: 1. D&C 2. Left breast fibroadenoma removed 3. Oral surgery for extra teeth 4. Bilateral lumpectomy and sentinel node biopsy Medical history: 1. Depression/anxiety. 2. DVT Social history: Smoke: Negative Alcohol: Occasional Drugs: Negative - Constitutional Constitutional: Denies chills, Denies fever - EENT Eyes: denies blurred vision, denies pain Ears: deny: decreased hearing, tinnitus Ears, nose, mouth and throat: Denies headache, Denies sore throat - Breasts Breasts: bilateral: as per HPI - Cardiovascular Cardiovascular: Denies chest pain, Denies shortness of breath - Respiratory Respiratory: Denies cough - Gastrointestinal Gastrointestinal: Denies abdominal pain, Denies diarrhea, Denies nausea, Denies vomiting - Genitourinary (Female) Genitourinary: Denies dysuria, Denies hematuria - Menstruation Menstruation: Reports postmenopausal - Musculoskeletal Comment: lumbar spine and hip pain, to have physical therapy, Musculoskeletal: Reports myalgias - Integumentary Integumentary: Denies pruritus, Denies rash - Neurological Comment: Peripheral neuropathy in the feet and hands Neurological: Reports numbness, Denies weakness - Psychiatric Psychiatric: Reports anxiety, Reports depression - Endocrine Endocrine: Reports fatigue, Denies weight change - Hematologic/Lymphatic Comment: baby aspirin - Allergic/Immunologic Allergic/Immunologic: Reports seasonal allergies Objective - Constitutional General appearance: Present: cooperative - EENT Eyes: Present: EOMI ENT: Present: hearing grossly normal - Neck Neck: Present: normal ROM - Respiratory Respiratory: bilateral: CTA - Cardiovascular Heart sounds: normal: S1, S2 - Gastrointestinal General gastrointestinal: Present: soft - Integumentary Integumentary: Present: normal turgor - Musculoskeletal Musculoskeletal: Present: gait normal - Psychiatric Psychiatric: Present: A&O x's 3, appropriate affect, intact judgment & insight - Additional findings Additional findings: Breast Exam: BRA: 40C inspection: Postoperative changes Palpation: Right breast: Multi-positional exam fibrocystic changes, postop changes, increased fullness in the lower medial aspect Right axilla: No adenopathy of concern Left breast: Multi-positional exam fibrocystic changes postop changes Left axilla: No adenopathy of concern Assessment and Plan Assessment: Impression: 1. Patient status post bilateral lumpectomy sentinel node biopsy and radiation therapy for breast carcinoma 2. Abnormal mammogram right breast 3. Anxiety/depression 4. DVT in Plan: 1. Stereotactic core biopsy right breast Risk and benefits to procedure discussed with the patient and her . They understand and wish to proceed. Risks include but are not limited to bleeding, infection, reaction to the anesthetic. If the area of concern is discordant or not adequately sampled open biopsy may be recommended. Cc: Dr. Garza
--- NOTE | 2021-09-04 12:16 | MM ---
Mariam is a 66-year-old white female who was noted on a mammogram of [id number] to have microcalcifications of concern in the right breast. Stereotactic core biopsy was recommended. Alternatives such as watchful waiting or open biopsy were considered but not recommended. Risks and benefits of the procedure were discussed with the patient. She wished to proceed with stereotactic core biopsy. Risk include but are not limited to bleeding, infection, reaction to the anesthetic. The patient was taken to stereotactic core biopsy room. She was positioned prone on the lo-rad table. A christmas tree farm crew boss film was obtained. The area of concern was identified. A CC from below approach was utilized. The area was targeted. Following this the breast was prepped using Betadine. 20 mL of 1% lidocaine were used to anesthetize the area of concern. A 9-gauge vacuum-assisted core rotating biopsy needle was driven to the correct coordinates. Prefire films were obtained. The needle was noted to be in the correct location. The needle was fired. Post fire films were obtained. The needle was noted to be in the correct location. 14 core biopsies were obtained. Radiograph of the specimen revealed microcalcifications of concern were obtained. A secure jacoby Top-clipping marker was placed. Radiograph confirmed the marker to be in the correct location. The patient tolerated the procedure in stable condition. The specimen was sent to pathology. The patient will follow-up with Dr. Lebron next week. GENO
== END ==
LOC: WWCWWP 07:24
PROVIDERS: ATTEND Surgery
DX: F41.9 Anxiety disorder, unspecified (principal); F32.A Depression, unspecified; Z86.718 Personal history of other venous thrombosis and embolism; Z98.890 Other specified postprocedural states; Z85.3 Personal history of malignant neoplasm of breast
CPT/HCPCS: 19081; A4648

== ENCOUNTER → 2021-09-12 | Outpatient (CLI) | payer BC ==
[2021-09-12 14:37] VITALS: BP 163/88; PULSE 89; RESP 18; TEMP 98.5
--- NOTE | 2021-09-12 14:54 | P.PN ---
Subjective Progress Note Date: 09/12/21 Principal diagnosis: fibrocystic breast tissue on stero biopsy of the right breast Stephanie is a 66-year-old white female status post posterior tactic core biopsy of the right breast performed on . Pathology revealed fibrous scar with microcalcifications. No cancer was identified. The patient tolerated the procedure without difficulty. Objective - Vital Signs Vital signs: Vital Signs Temp 98.5 F 09/12/21 14:35 Pulse 89 09/12/21 14:35 Resp 18 09/12/21 14:35 BP 163/88 09/12/21 14:35 Pulse Ox 98 09/12/21 14:35 Intake & Output 09/11/21 09/12/21 09/12/21 18:59 06:59 18:59 Weight 86.183 kg - Constitutional General appearance: Present: cooperative - EENT Eyes: Present: EOMI ENT: Present: hearing grossly normal - Neck Neck: Present: normal ROM - Cardiovascular Heart sounds: normal: S1, S2 - Integumentary Integumentary Comment(s): Biopsy site right breast mild ecchymosis no evidence of infection Integumentary: Present: normal turgor - Musculoskeletal Musculoskeletal: Present: gait normal - Psychiatric Psychiatric: Present: A&O x's 3, appropriate affect, intact judgment & insight Assessment and Plan Assessment: Impression: Patient has requested a desire to have Port-A-Cath removed she will consider this the first of the year Patient is also question whether she should be on an aromatase inhibitor and she will follow with Dr. Amaro regarding this Plan: Repeat right breast mammogram in 6 months with physician exam at that time Follow-up medical oncology/ refer to [facility] for removal Probable Port-A-Cath removal first of the year CC: Dr. Garza
== END ==
LOC: WWCWWP 13:50
PROVIDERS: ATTEND Surgery
DX: L90.5 Scar conditions and fibrosis of skin (principal); Z79.811 Long term (current) use of aromatase inhibitors

== ENCOUNTER → 2022-03-18 | Outpatient (CLI) | payer BC ==
--- NOTE | 2022-03-18 15:02 | MM ---
Reason for Exam: Follow-up at short interval from prior study. Last screening mammogram was performed 8 month(s) ago. Patient History: Menarche at age 10. First Full-Term at age 29. Late child-bearing (after 29). Postmenopausal. Breast cancer, age 64. 07/18/2019, Lumpectomy on the Right side. 07/18/2019, Lumpectomy on the Left side. 09/04/2021, Benign Core Biopsy on the right side. 07/18/2019, Malignant Core Biopsy on the right side. 07/18/2019, Malignant Core Biopsy on the left side. 01/23/2019, Malignant Core Biopsy on the left side. 01/23/2019, Malignant Core Biopsy on the right side. Prior Study Comparison: 01/23/2019 Bilateral Diagnostic Mammogram, [facility]. 07/11/2020 Bilateral Diagnostic Mammogram, [facility]. 07/30/2021 Bilateral Diagnostic Mammogram, [facility]. Tissue Density: Right: There are scattered fibroglandular densities. Findings: Analyzed By CAD. Persistent distortion with surgical clips and dystrophic calcifications having biopsy clip in the right breast lower inner aspect. No new suspicious mass or worrisome cluster or microcalcification. Overall Assessment: Benign, BI-RAD 2 Management: Diagnostic Mammogram of both breasts in 5 months. Back on annual schedule. Results were given to the patient verbally at the time of exam. Electronically signed and approved by: Chris Pacheco M.D.
== END | disposition home or self-care (01) ==
LOC: RADMAMWWP 14:04
PROVIDERS: ATTEND Surgery
DX: R92.8 Other abnormal and inconclusive findings on diagnostic imaging of breast (principal); Z85.3 Personal history of malignant neoplasm of breast; Z78.0 Asymptomatic menopausal state
CPT/HCPCS: 77061; 77065

== ENCOUNTER → 2022-03-27 | Outpatient (CLI) | payer BC ==
[2022-03-27 15:11] VITALS: BP 150/75; PULSE 74; RESP 17; TEMP 97.8
--- NOTE | 2022-03-27 15:44 | P.PN ---
Subjective Progress Note Date: 03/27/22 Principal diagnosis: bilateral breast cancer surveillance history of bilateral breast cancer right breast stage IA invasive ductal carcinoma Left breast stage IIa invasive ductal carcinoma Mariam is a 66-year-old white female who was initially seen in January 2019. At that time she had been noted to have some nodularity in her left breast. She subsequently underwent a mammogram and bilateral breast ultrasounds. The mammogram revealed benign calcifications in both breast and multiple nodularity in both breasts with fibroglandular densities. She subsequently underwent bilateral breast ultrasounds. The right breast ultrasound revealed a 0.8 posterior 0.7 cm lesion at 3:00 in the left breast ultrasound revealed a 1.9 cm lesion at 9:00 and is 0.4 x 0.2 cm solid lesion at 9:00 the patient underwent bilateral ultrasound core biopsy. The right breast lesion was infiltrating grade 2 adenocarcinoma consistent with infiltrating ductal carcinoma. There was focal low-grade DCIS as well. The left breast cancer at 9:00 revealed poorly differentiated adenocarcinoma wi th dense lymphoid infiltrate consistent with infiltrating ductal carcinoma. The right breast tumor was positive for ER and [place] and negative for HER-2/woodrow the left breast tumor was negative for ER/ME and positive for HER-2/woodrow. The patient underwent neoadjuvant chemotherapy including herceptin and perjeta. She had an excellent response with the palpable lesion in the left breast becoming nonpalpable. Patient finished her chemotherapy underwent for surgical intervention. She initially considered bilateral mastectomy. However, she underwent bilateral lumpectomy and sentinal node biopsy on July 18, 2020. Pathology did not reveal any tumor in the sentinel lymph nodes. In the right breast lumpectomy specimen had a 0.7 cm well-differentiated grade 1 adenocarcinoma proximally 0.55 cm from the closest margin. In the left breast there was no residual cancer identified. The patient finished Herceptin. She had bilateral radiation therapy. She was on an antiestrogen medication but stopped this secondary to bone pain. She is not concerned about any lumps masses or nodules in her breast. She does not complain of any breast pain. She is not had any complaints of any nipple discharge or skin changes of her progress. She had a bilateral mammogram on [id number]. This revealed new indeterminate calcifications in the right breast. Biopsy was recommended. This was done on 09-04-21. This was fibrous scar with microcalcifications. She had a repeat right breast mammogram on 03-18-22 which was benign BIRAD 2. Is not concerned about any new lumps masses or nodules in either breast. Family history: Paternal grandmother: Colon cancer Brother: Colon cancer patient: bilateral breast cancer History: Menarche: 10 , 1 stillborn, first at 29, press-fit: Yes Menopause: 54 control pills: None Hormones: None Past surgical history: 1. D&C 2. Left breast fibroadenoma removed 3. Oral surgery for extra teeth 4. Bilateral lumpectomy and sentinel node biopsy Medical history: 1. Depression/anxiety. 2. DVT Social history: Smoke: Negative Alcohol: Occasional Drugs: Negative - Constitutional Constitutional: Denies chills, Denies fever - EENT Eyes: denies blurred vision, denies pain Ears: deny: decreased hearing, tinnitus Ears, nose, mouth and throat: Denies headache, Denies sore throat - Breasts Breasts: bilateral: as per HPI - Cardiovascular Cardiovascular: Denies chest pain, Denies shortness of breath - Respiratory Respiratory: Denies cough - Gastrointestinal Gastrointestinal: Denies abdominal pain, Denies diarrhea, Denies nausea, Denies vomiting - Genitourinary (Female) Genitourinary: Denies dysuria, Denies hematuria - Menstruation Menstruation: Reports postmenopausal - Musculoskeletal Comment: lumbar spine and hip pain, to have physical therapy, Musculoskeletal: Reports myalgias - Integumentary Integumentary: Denies pruritus, Denies rash - Neurological Comment: Peripheral neuropathy in the feet and hands Neurological: Reports numbness, Denies weakness - Psychiatric Psychiatric: Reports anxiety, Reports depression - Endocrine Endocrine: Reports fatigue, Denies weight change - Hematologic/Lymphatic Comment: baby aspirin - Allergic/Immunologic Allergic/Immunologic: Reports seasonal allergies Objective - Vital Signs Vital signs: Vital Signs Temp 97.8 F 03/27/22 15:09 Pulse 74 03/27/22 15:09 Resp 17 03/27/22 15:09 BP 150/75 03/27/22 15:09 Pulse Ox 97 03/27/22 15:09 FiO2 Intake & Output 03/26/22 03/27/22 03/27/22 18:59 06:59 18:59 Weight 83.915 kg - Exam BMI: 29.9 - Constitutional General appearance: Present: cooperative - EENT Eyes: Present: EOMI ENT: Present: hearing grossly normal - Neck Neck: Present: normal ROM - Respiratory Respiratory: bilateral: CTA - Cardiovascular Rhythm: regular Heart sounds: normal: S1, S2 - Gastrointestinal General gastrointestinal: Present: soft - Integumentary Integumentary: Present: normal turgor - Musculoskeletal Musculoskeletal: Present: gait normal - Psychiatric Psychiatric: Present: A&O x's 3, appropriate affect, intact judgment & insight - Additional findings Additional findings: Breast Exam: BRA: 40C inspection: port in place in the right chest; And post radiation changes bilateral breast Palpation: Right breast: Postop postradiation changes noted no dominant masses or nodules of concern Right axilla: No adenopathy of concern Left breast: Postop postradiation changes noted predominantly masses or nodules of concern Left axilla: No adenopathy of concern Assessment and Plan Assessment: Impression: Patient doing well status post bilateral lumpectomy and sentinel node biopsy. No evidence of any recurrent cancer. Most recently she was status post a stereotactic core biopsy of the right breast on which was benign. Plan: Bilateral mammogram in 4 months with physician exam at that time she is no longer following with medical or radiation oncology CC: Dr. Lizarraga
== END ==
LOC: WWCWWP 15:02
PROVIDERS: ATTEND Surgery
DX: Z08 Encounter for follow-up examination after completed treatment for malignant neoplasm (principal); Z85.3 Personal history of malignant neoplasm of breast; Z98.890 Other specified postprocedural states; F32.A Depression, unspecified; F41.9 Anxiety disorder, unspecified; Z86.718 Personal history of other venous thrombosis and embolism

== ENCOUNTER → 2022-08-20 | Outpatient (CLI) | payer BC ==
--- NOTE | 2022-08-20 13:36 | MM ---
Reason for Exam: Follow-up at short interval from prior study. Last mammogram was performed 1 year(s) and 1 month(s) ago. Patient History: Menarche at age 10. First Full-Term at age 29. Late child-bearing (after 29). Postmenopausal. Breast cancer, age 64. 07/18/2019, Lumpectomy on the Right side. 07/18/2019, Lumpectomy on the Left side. 09/04/2021, Benign Core Biopsy on the right side. 07/18/2019, Malignant Core Biopsy on the right side. 07/18/2019, Malignant Core Biopsy on the left side. 01/23/2019, Malignant Core Biopsy on the left side. 01/23/2019, Malignant Core Biopsy on the right side. Tissue Density: There are scattered fibroglandular densities. Findings: Analyzed By CAD. Postsurgical and posttreatment change of bilateral breasts. Bilateral fat necrosis calcifications, right greater than left redemonstrated. Microclip right breast from recent biopsy. No significant change from prior exams. Overall Assessment: Benign, BI-RAD 2 Management: Screening Mammogram of both breasts in 1 year. 1. Patient should continue monthly self breast exams. 2. A clinical breast exam by your physician is recommended on an annual basis. 3. This exam should not preclude additional follow-up of suspicious palpable abnormalities. Results were given to the patient verbally at the time of exam. Electronically signed and approved by: Maryam Lynne M.D. Radiologist
== END | disposition home or self-care (01) ==
LOC: RADMAMWWP 12:54
PROVIDERS: ATTEND Surgery
DX: Z85.3 Personal history of malignant neoplasm of breast (principal); Z78.0 Asymptomatic menopausal state
CPT/HCPCS: 77062; 77066

== ENCOUNTER → 2022-08-20 | Outpatient (CLI) | payer BC ==
[2022-08-20 13:27] VITALS: BP 135/81; PULSE 83; RESP 17; TEMP 98.3
--- NOTE | 2022-08-20 14:05 | P.PN ---
Subjective Progress Note Date: 08/20/22 Principal diagnosis: bilateral breast cancer bilateral breast cancer surveillance history of bilateral breast cancer right breast stage IA invasive ductal carcinoma Left breast stage IIa invasive ductal carcinoma Mariam is a 67-year-old white female who was initially seen in January 2019. At that time she had been noted to have some nodularity in her left breast. She subsequently underwent a mammogram and bilateral breast ultrasounds. The mammogram revealed benign calcifications in both breast and multiple nodularity in both breasts with fibroglandular densities. She subsequently underwent bilateral breast ultrasounds. The right breast ultrasound revealed a 0.8 posterior 0.7 cm lesion at 3:00 in the left breast ultrasound revealed a 1.9 cm lesion at 9:00 and is 0.4 x 0.2 cm solid lesion at 9:00 the patient underwent bilateral ultrasound core biopsy. The right breast lesion was infiltrating grade 2 adenocarcinoma consistent with infiltrating ductal carcinoma. There was focal low-grade DCIS as well. The left breast cancer at 9:00 revealed poorly differentiated adenocarcinoma with dense lymphoid infiltrate consistent with infiltrating ductal carcinoma. The right breast tumor was positive for ER and [place] and negative for HER-2/woodrow the left breast tumor was negative for ER/[place] and positive for HER-2/woodrow. The patient underwent neoadjuvant chemotherapy including herceptin and perjeta. She had an excellent response with the palpable lesion in the left breast becoming nonpalpable. Patient finished her chemotherapy underwent for surgical intervention. She initially considered bilateral mastectomy. However, she underwent bilateral lumpectomy and sentinal node biopsy on July 18, 2020. Pathology did not reveal any tumor in the sentinel lymph nodes. In the right breast lumpectomy specimen had a 0.7 cm well-differentiated grade 1 adenocarcinoma proximally 0.55 cm from the closest margin. In the left breast there was no residual cancer identified. The patient finished Herceptin. She had bilateral radiation therapy. She was on an antiestrogen medication but stopped this secondary to bone pain. She is not concerned about any lumps masses or nodules in her breast. She does not complain of any breast pain. She is not had any complaints of any nipple discharge or skin changes. She had a bilateral mammogram on [id number]. This revealed new indeterminate calcifications in the right breast. Biopsy was recommended. This was done on 09-04-21. This was fibrous scar with microcalcifications. She had a repeat right breast mammogram on 03-18-22 which was benign BIRAD 2. Edenhad a bilateral mammogram on 08-20-22 which was BIRADS 2. Family history: Paternal grandmother: Colon cancer Brother: Colon cancer patient: bilateral breast cancer History: Menarche: 10 , 1 stillborn, first at 29, press-fit: Yes Menopause: 54 control pills: None Hormones: None Past surgical history: 1. D&C 2. Left breast fibroadenoma removed 3. Oral surgery for extra teeth 4. Bilateral lumpectomy and sentinel node biopsy Medical history: 1. Depression/anxiety. 2. DVT Social history: Smoke: Negative Alcohol: Occasional Drugs: Negative - Constitutional Constitutional: Denies chills, Denies fever - EENT Eyes: denies blurred vision, denies pain Ears: deny: decreased hearing, tinnitus Ears, nose, mouth and throat: Denies headache, Denies sore throat - Breasts Breasts: bilateral: as per HPI - Cardiovascular Cardiovascular: Denies chest pain, Denies shortness of breath - Respiratory Respiratory: Denies cough - Gastrointestinal Gastrointestinal: Denies abdominal pain, Denies diarrhea, Denies nausea, Denies vomiting - Genitourinary (Female) Genitourinary: Denies dysuria, Denies hematuria - Menstruation Menstruation: Reports postmenopausal - Musculoskeletal Comment: lumbar spine and hip pain, to have physical therapy, Musculoskeletal: Reports myalgias - Integumentary Integumentary: Denies pruritus, Denies rash - Neurological Comment: Peripheral neuropathy in the feet and hands Neurological: Reports numbness, Denies weakness - Psychiatric Psychiatric: Reports anxiety, Reports depression - Endocrine Endocrine: Reports fatigue, Denies weight change - Hematologic/Lymphatic Comment: baby aspirin - Allergic/Immunologic Allergic/Immunologic: Reports seasonal allergies Objective - Vital Signs Vital signs: Vital Signs Temp 98.3 F 08/20/22 13:25 Pulse 83 08/20/22 13:25 Resp 17 08/20/22 13:25 BP 135/81 08/20/22 13:25 Pulse Ox 96 08/20/22 13:25 FiO2 Intake & Output 08/19/22 08/20/22 08/20/22 18:59 06:59 18:59 Weight 86.183 kg - Constitutional General appearance: Present: cooperative - EENT Eyes: Present: EOMI ENT: Present: hearing grossly normal - Neck Neck: Present: normal ROM - Respiratory Respiratory: bilateral: CTA - Cardiovascular Rhythm: regular Heart sounds: normal: S1, S2 - Integumentary Integumentary: Present: normal turgor - Musculoskeletal Musculoskeletal: Present: gait normal - Psychiatric Psychiatric: Present: A&O x's 3, appropriate affect, intact judgment & insight - Additional findings Additional findings: Breast Exam: BRA: 40C inspection: port in place in the right chest; And post radiation changes bilateral breast Palpation: Right breast: Postop postradiation changes noted no dominant masses or nodules of concern Right axilla: No adenopathy of concern Left breast: Postop postradiation changes noted predominantly masses or nodules of concern Left axilla: No adenopathy of concern Assessment and Plan Assessment: Impression: Patient status post bilateral lumpectomy and sentinel node biopsy. No evidence of any recurrent cancer. Bilateral mammogram [id number] benign BIRADS 2 Plan: Bilateral mammogram in 1 year Follow-up here in 6 months for physician exam Follow up sooner any questions or concerns To continue to follow with radiation oncology Patient is opted not to take the anti-hormone medication secondary to bone pain we will continue to follow her closely CC: Dr. Lizarraga
== END | disposition home or self-care (01) ==
LOC: WWCWWP 12:57
PROVIDERS: ATTEND Surgery
DX: Z53.9 Procedure and treatment not carried out, unspecified reason (principal)

== ENCOUNTER → 2023-05-07 | Outpatient (CLI) | payer BC ==
[2023-05-07 14:54] VITALS: BP 145/74; PULSE 71; RESP 13; TEMP 98.2
--- NOTE | 2023-05-07 15:13 | P.PN ---
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 At that time she had been noted to have some nodularity in her left breast. She subsequently underwent a mammogram and bilateral breast ultrasounds. The mammogram revealed benign calcifications in both breast and multiple nodularity in both breasts with fibroglandular densities. She subsequently underwent bilateral breast ultrasounds. The right breast ultrasound revealed a 0.8 posterior 0.7 cm lesion at 3:00 in the left breast ultrasound revealed a 1.9 cm lesion at 9:00 and is 0.4 x 0.2 cm solid lesion at 9:00 the patient underwent bilateral ultrasound core biopsy. The right breast lesion was infiltrating grade 2 adenocarcinoma consistent with infiltrating ductal carcinoma. There was focal low-grade DCIS as well. The left breast cancer at 9:00 revealed poorly differentiated adenocarcinoma with dense lymphoid infiltrate consistent with infiltrating ductal carcinoma. The right breast tumor was positive for ER and [place] and negative for HER-2/woodrow the left breast tumor was negative for ER/MA and positive for HER-2/woodrow. The patient underwent neoadjuvant chemotherapy including herceptin and perjeta. She had an excellent response with the palpable lesion in the left breast becoming nonpalpable. Patient finished her chemotherapy underwent for surgical intervention. She initially considered bilateral mastectomy. However, she underwent bilateral lumpectomy and sentinal node biopsy on July 18, 2020. Pathology did not reveal any tumor in the sentinel lymph nodes. In the right breast lumpectomy specimen had a 0.7 cm well-differentiated grade 1 adenocarcinoma proximally 0.55 cm from the closest margin. In the left breast there was no residual cancer identified. The patient finished Herceptin. She had bilateral radiation therapy. She was on an antiestrogen medication but stopped this secondary to bone pain. She is not concerned about any lumps masses or nodules in her breast. She does not complain of any breast pain. She is not had any complaints of any nipple discharge or skin changes. She had a bilateral mammogram on [id number]. This revealed new indeterminate calcifications in the right breast. Biopsy was recommended. This was done on 09-04-21. This was fibrous scar with microcalcifications. She had a repeat right breast mammogram on 03-18-22 which was benign BIRAD 2. She had a bilateral mammogram on 08-20-22 which was BIRADS 2. 8-01-24 She is not complaining of any lumps masses or nodules of concern in either breast. Still has a Port-A-Cath in the right chest wall which she would like to have removed. Family history: Paternal grandmother: Colon cancer Brother: Colon cancer patient: bilateral breast cancer History: Menarche: 10 , 1 stillborn, first at 29, press-fit: Yes Menopause: 54 control pills: None Hormones: None Past surgical history: 1. D&C 2. Left breast fibroadenoma removed 3. Oral surgery for extra teeth 4. Bilateral lumpectomy and sentinel node biopsy Medical history: 1. Depression/anxiety. 2. DVT Social history: Smoke: Negative Alcohol: Occasional Drugs: Negative - Constitutional Constitutional: Denies chills, Denies fever - EENT Eyes: denies blurred vision, denies pain Ears: deny: decreased hearing, tinnitus Ears, nose, mouth and throat: Denies headache, Denies sore throat - Breasts Breasts: bilateral: as per HPI - Cardiovascular Cardiovascular: Denies chest pain, Denies shortness of breath - Respiratory Respiratory: Denies cough - Gastrointestinal Gastrointestinal: Denies abdominal pain, Denies diarrhea, Denies nausea, Denies vomiting - Genitourinary (Female) Genitourinary: Denies dysuria, Denies hematuria - Menstruation Menstruation: Reports postmenopausal - Musculoskeletal Comment: lumbar spine and hip pain, to have physical therapy, Musculoskeletal: Reports myalgias - Integumentary Integumentary: Denies pruritus, Denies rash - Neurological Comment: Peripheral neuropathy in the feet and hands Neurological: Reports numbness, Denies weakness - Psychiatric Psychiatric: Reports anxiety, Reports depression - Endocrine Endocrine: Reports fatigue, Denies weight change - Hematologic/Lymphatic Comment: baby aspirin - Allergic/Immunologic Allergic/Immunologic: Reports seasonal allergies Objective - Vital Signs Vital signs: Vital Signs Temp 98.2 F 05/07/23 14:51 Pulse 71 05/07/23 14:51 Resp 13 05/07/23 14:51 BP 145/74 05/07/23 14:51 Pulse Ox 95 05/07/23 14:51 FiO2 Intake & Output 05/06/23 05/07/23 05/07/23 18:59 06:59 18:59 Weight 81.647 kg - Constitutional General appearance: Present: cooperative - EENT Eyes: Present: EOMI ENT: Present: hearing grossly normal - Neck Neck: Present: normal ROM - Respiratory Respiratory: bilateral: CTA - Cardiovascular Rhythm: regular Heart sounds: normal: S1, S2 - Gastrointestinal General gastrointestinal: Present: soft - Integumentary Integumentary: Present: normal turgor - Musculoskeletal Musculoskeletal: Present: gait normal - Psychiatric Psychiatric: Present: A&O x's 3, appropriate affect, intact judgment & insight - Additional findings Additional findings: Breast Exam: BRA: 40C inspection: port in place in the right chest; post surgical and post radiation changes bilateral breast Palpation: Right breast: Postop and postradiation changes noted no dominant masses or nodul es of concern Right axilla: No adenopathy of concern Left breast: Postop and postradiation changes noted no dominate masses or nodules of concern Left axilla: No adenopathy of concern Assessment and Plan Assessment: Impression: Patient status post bilateral lumpectomy and sentinel node biopsy. No evidence of any recurrent cancer. Bilateral mammogram [id number] benign BIRADS 2 Plan: Bilateral mammogram in August 2022 Follow-up here Novmber Follow up sooner any questions or concerns Patient is opted not to take the anti-hormone medication secondary to bone pain we will continue to follow her closely follow up with general surgery for port removal CC: Dr. Lizarraga
== END ==
LOC: WWCWWP 14:45
PROVIDERS: ATTEND Surgery
DX: C50.911 Malignant neoplasm of unspecified site of right female breast (principal); C50.912 Malignant neoplasm of unspecified site of left female breast; F32.A Depression, unspecified; F41.9 Anxiety disorder, unspecified; Z85.3 Personal history of malignant neoplasm of breast; Z17.0 Estrogen receptor positive status [ER+]; Z78.0 Asymptomatic menopausal state; Z86.718 Personal history of other venous thrombosis and embolism; Z80.3 Family history of malignant neoplasm of breast

== ENCOUNTER → 2023-08-12 | Outpatient (CLI) | payer MEDICARE ==
--- NOTE | 2023-08-12 16:17 | BD ---
EXAMINATION TYPE: Axial Bone Density DATE OF EXAM: 08/12/2023 CLINICAL HISTORY: 68 years old Female. ICD-10 CODE: Z780 [place] STATE Height: 5 ft 6 in Weight: 191 FRAX RISK QUESTIONS: Alcohol (3 or more units per day): no Family History (Parent hip fracture): no Glucocorticoids (More than 3mos): no (Ex: prednisone, prednisolone, methylprednisolone, dexamethasone, and hydrocortisone). History of Fracture in Adulthood: yes Secondary Osteoporosis: 1. Type 1 Diabetes: no 2. Hyperthyroidism: no 3. Menopause before 45: no 4. Malnutrition: no 5. Chronic liver disease: no Rheumatoid Arthritis: no Current Tobacco Use: no RISK FACTORS HISTORY OF: History of Wrist Fracture: yes left When: 1977 Surgery to Spine/Hip(right/left)/Wrist (right/left): no Family History of Osteoporosis: no Active: yes Diet low in dairy products/other sources of calcium: no Postmenopausal woman: yes Take estrogen and/or progesterone medications: no Lost more than 2 inches in height since high school: no Frequent falls: no Poor Health: good Hyperparathyroidism: no Adrenal Insufficiency: no MEDICATIONS: Additional Medications: zoloft, aspirin,meloxicam Additional History: EXAM MEASUREMENTS: Bone mineral densitometry was performed using the [employer] System. Bone mineral density as measured about the Lumbar spine is: ----- L1-L4(G/cm2): 0.982 T Score Values are as follows: ----- L1: -2.8 ----- L2: -2.5 ----- L3: -1.1 ----- L4: -0.7 ----- L1-L4: -1.7 Z Score Values are as follows: ----- L1: -1.8 ----- L2: -1.6 ----- L3: -0.1 ----- L4: 0.3 ----- L1-L4: -0.7 baseline Bone mineral density about the R hip (g/cm2): 0.786 Bone mineral density about the L hip (g/cm2): 0.716 T Score values are as follows: -----R Neck: -1.8 -----L Neck: -2.3 -----R Total: -2.1 -----L Total: -2.2 Z Score values are as follows: -----R Neck: -0.6 -----L Neck: -1.1 -----R Total: -1.2 -----L Total: -1.3 baseline FRAX%s: The graph provided illustrates a 20.5 % chance for a major osteoporotic fx and a 4.4 % chance for the hips probability for fx in 10 years time. IMPRESSION: Osteopenia (T Score between -2.5 and -1). There is slightly increased risk of fracture and the patient may be considered for treatment. Re-Screen 2-5 years. NOTE: T-SCORE=SD OF THE YOUNG ADULT MEAN.
== END | disposition home or self-care (01) ==
LOC: RADBDWWP 15:50
PROVIDERS: ATTEND Internal Medicine
DX: Z13.820 Encounter for screening for osteoporosis (principal); M81.0 Age-related osteoporosis without current pathological fracture; M85.89 Other specified disorders of bone density and structure, multiple sites; Z78.0 Asymptomatic menopausal state
CPT/HCPCS: 77080

== ENCOUNTER → 2023-08-23 | Outpatient (CLI) | payer MEDICARE ==
--- NOTE | 2023-08-23 14:28 | MM ---
Reason for Exam: Hx of breast cancer, conservation therapy. Last screening mammogram was performed 12 month(s) ago. Patient History: Menarche at age 10. First Full-Term at age 29. Late child-bearing (after 30). Postmenopausal. Breast cancer, bilateral, age 64. Previous chest radiation therapy at age 64. Previous chemotherapy at age 64. 07/18/2019, Lumpectomy on the Right side. 07/18/2019, Lumpectomy on the Left side. 09/04/2021, Benign Core Biopsy on the right side. 07/18/2019, Malignant Core Biopsy on the right side. 07/18/2019, Malignant Core Biopsy on the left side. 01/23/2019, Malignant Core Biopsy on the left side. 01/23/2019, Malignant Core Biopsy on the right side. Prior Study Comparison: 07/11/2020 Bilateral Diagnostic Mammogram, [facility]. 07/30/2021 Bilateral Diagnostic Mammogram, [facility]. 08/20/2022 Bilateral MG 3D diag mammo w/cad SERGEI, [facility]. Tissue Density: The breast tissue is heterogeneously dense. This may lower the sensitivity of mammography. Findings: Analyzed By CAD. Postoperative distortion from bilateral lumpectomy and radiation therapy. Left-sided skin thickening is stable. Benign dystrophic calcifications are stable. No suspicious calcifications evident. Overall Assessment: Benign, BI-RAD 2 Management: Screening Mammogram of both breasts in 1 year. . Results were given to the patient verbally at the time of exam. Patient should continue monthly self-breast exams. A clinical breast exam by your physician is recommended on an annual basis. This exam should not preclude additional follow-up of suspicious palpable abnormalities. Note on Felicita scores and lifetime risk: 1. A Felicita score greater than 3% is considered moderate risk. If this is the case, consider specialist referral to assess eligibility for a risk reducing agent. 2. If overall lifetime risk for the development of breast cancer is 20% or higher, the patient may qualify for future screening with alternating mammogram and breast MRI. Electronically signed and approved by: Noe Salazar M.D. Radiologis
== END | disposition home or self-care (01) ==
LOC: RADMAMWWP 13:40
PROVIDERS: ATTEND Surgery
DX: R92.333 Mammographic heterogeneous density, bilateral breasts (principal); Z85.3 Personal history of malignant neoplasm of breast; Z78.0 Asymptomatic menopausal state
CPT/HCPCS: 77066; G0279; 77062

== ENCOUNTER → 2023-12-23 | Outpatient (CLI) | payer BC, MEDICARE ==
--- NOTE | 2023-12-23 16:06 | P.PN ---
Subjective Progress Note Date: 12/23/23 Principal diagnosis: Right breast: Stage IA invasive ductal carcinoma Left breast: Stage II invasive ductal carcinoma Bilateral breast cancer Right breast: Stage IA invasive ductal carcinoma Left breast: Stage II invasive ductal carcinoma Subjective Progress Note Date: 05-07-23 Principal diagnosis: bilateral breast cancer surveillance history of bilateral breast cancer right breast stage IA invasive ductal carcinoma 2019 Left breast stage IIa invasive ductal carcinoma 2018 Mariam is a 67-year-old white female who was initially seen in January 2019. At that time she had been noted to have some nodularity in her left breast. She subsequently underwent a mammogram and bilateral breast ultrasounds. The mammogram revealed benign calcifications in both breast and multiple nodularity in both breasts with fibroglandular densities. She subsequently underwent bilateral breast ultrasounds. The right breast ultrasound revealed a 0.8 posterior 0.7 cm lesion at 3:00 in the left breast ultrasound revealed a 1.9 cm lesion at 9:00 and is 0.4 x 0.2 cm solid lesion at 9:00 the patient underwent bilateral ultrasound core biopsy. The right breast lesion was infiltrating grade 2 adenocarcinoma consistent with infiltrating ductal carcinoma. There was focal low-grade DCIS as well. The left breast cancer at 9:00 revealed poorly differentiated adenocarcinoma with dense lymphoid infiltrate consistent with infiltrating ductal carcinoma. The right breast tumor was positive for ER and WI and negative for HER-2/woodrow the left breast tumor was negative for ER/WI and positive for HER-2/woodrow. The patient underwent neoadjuvant chemotherapy including herceptin and perjeta. She had an excellent response with the palpable lesion in the left breast becoming nonpalpable. Patient finished her chemotherapy underwent for surgical intervention. She initially considered bilateral mastectomy. However, she underwent bilateral lumpectomy and sentinal node biopsy on July 18, 2020. Pathology did not reveal any tumor in the sentinel lymph nodes. In the right breast lumpectomy specimen had a 0.7 cm well-differentiated grade 1 adenocarcinoma proximally 0.55 cm from the closest margin. In the left breast there was no residual cancer identified. The patient finished Herceptin. She had bilateral radiation therapy. She was on an antiestrogen medication but stopped this secondary to bone pain. She is not concerned about any lumps masses or nodules in her breast. She does not complain of any breast pain. She is not had any complaints of any nipple discharge or skin changes. She had a bilateral mammogram on [id number]. This revealed new indeterminate calcifications in the right breast. Biopsy was recommended. This was done on 09-04-21. This was fibrous scar with microcalcifications. She had a repeat right breast mammogram on 03-18-22 which was benign BIRAD 2. She had a bilateral mammogram on 08-20-22 which was BIRADS 2. 05-07-23 She is not complaining of any lumps masses or nodules of concern in either breast. Still has a Port-A-Cath in the right chest wall which she would like to have removed. 12-23-23 right breast: IDC G2 low grade DCIS, ER+WI+Her2-T 0.8cm; 2018 left breast: IDC ER-Pr-HEr2+; T1.9cm; 2018 Stephanie was diagnosed with bilateral breast cancer in 2018, she received neoadjuvant chemotherapy including herceptin and perjeta. She them had a bilateral lumpectomy and SNB. She then completed bilateral radiation therapy She did nto tolerate hormone therapy and stopped this. Bilateral mammogram o 08-23-23 BIRAD 2 The patient is not complaining of any new lumps masses or nodules of concern in either breast. Patient still has port in place in her right chest wall. Family history: Paternal grandmother: Colon cancer Brother: Colon cancer patient: bilateral breast cancer History: Menarche: 10 , 1 stillborn, first at 29, press-fit: Yes Menopause: 54 control pills: None Hormones: None Past surgical history: 1. D&C 2. Left breast fibroadenoma removed 3. Oral surgery for extra teeth 4. Bilateral lumpectomy and sentinel node biopsy Medical history: 1. Depression/anxiety. 2. DVT Social history: Smoke: Negative Alcohol: Occasional Drugs: Negative - Constitutional Constitutional: Denies chills, Denies fever - EENT Eyes: denies blurred vision, denies pain Ears: deny: decreased hearing, tinnitus Ears, nose, mouth and throat: Denies headache, Denies sore throat - Breasts Breasts: bilateral: as per HPI - Cardiovascular Cardiovascular: Denies chest pain, Denies shortness of breath - Respiratory Respiratory: Denies cough - Gastrointestinal Gastrointestinal: Denies abdominal pain, Denies diarrhea, Denies nausea, Denies vomiting - Genitourinary (Female) Genitourinary: Denies dysuria, Denies hematuria - Menstruation Menstruation: Reports postmenopausal - Musculoskeletal Comment: lumbar spine and hip pain, to have physical therapy, Musculoskeletal: Reports myalgias - Integumentary Integumentary: Denies pruritus, Denies rash - Neurological Comment: Peripheral neuropathy in the feet and hands Neurological: Reports numbness, Denies weakness - Psychiatric Psychiatric: Reports anxiety, Reports depression - Endocrine Endocrine: Reports fatigue, Denies weight change - Hematologic/Lymphatic Comment: baby aspirin - Allergic/Immunologic Allergic/Immunologic: Reports seasonal allergies Objective - Vital Signs Vital signs: Intake & Output 12/22/23 12/23/23 12/23/23 18:59 06:59 18:59 Weight 86.183 kg - Constitutional General appearance: Present: cooperative - EENT Eyes: Present: EOMI ENT: Present: hearing grossly normal - Neck Neck: Present: normal ROM - Respiratory Respiratory: bilateral: CTA - Cardiovascular Rhythm: regular Heart sounds: normal: S1, S2 - Gastrointestinal General gastrointestinal: Present: soft - Integumentary Integumentary: Present: normal turgor - Musculoskeletal Musculoskeletal: Present: gait normal - Psychiatric Psychiatric: Present: A&O x's 3, appropriate affect, intact judgment & insight - Additional findings Additional findings: Breast Exam: BRA: 40C inspection: port in place in the right chest; post surgical and post radiation changes bilateral breast Palpation: Right breast: Postop and postradiation changes noted no dominant masses or nodules of concern Right axilla: No adenopathy of concern Left breast: Postop and postradiation changes noted no dominate masses or nodules of concern Left axilla: No adenopathy of concern Assessment and Plan Assessment: Impression: Patient status post bilateral lumpectomy and sentinel node biopsy. No evidence of any recurrent cancer. Bilateral mammogram 112-23 benign BIRADS 2 Plan: Bilateral mammogram in August 2024 Follow-up here August Follow up sooner any questions or concerns refer to general surgery for port a cath removal Patient has opted not to take the anti-hormone medication secondary to bone pain we will continue to follow her closely follow up with general surgery for port removal CC: Dr. Lizarraga
[2023-12-23 16:18] VITALS: BP 134/79; PULSE 76; RESP 17; TEMP 98.1
== END ==
LOC: WWCWWP 15:04
PROVIDERS: ATTEND Surgery
DX: Z01.419 Encounter for gynecological examination (general) (routine) without abnormal findings (principal); R92.1 Mammographic calcification found on diagnostic imaging of breast; R92.8 Other abnormal and inconclusive findings on diagnostic imaging of breast; R92.0 Mammographic microcalcification found on diagnostic imaging of breast; R92.323 Mammographic fibroglandular density, bilateral breasts; C50.811 Malignant neoplasm of overlapping sites of right female breast; C50.812 Malignant neoplasm of overlapping sites of left female breast; L90.5 Scar conditions and fibrosis of skin; Z17.0 Estrogen receptor positive status [ER+]; Z92.3 Personal history of irradiation

== ENCOUNTER 2024-06-23 08:09 | Day surgery (SDC) | payer BC, MEDICARE ==
[2024-06-20 16:32] VITALS: BMI 29.0
--- NOTE | 2024-06-23 05:44 | P.GSHP ---
History of Present Illness H&P Date: 06/23/24 CHIEF COMPLAINT: Breast cancer. HISTORY OF PRESENT ILLNESS: The patient is a 69-year-old female diagnosed with invasive breast cancer. She had a Mediport placement. She presents for Port-A-Cath removal upon completion of her chemotherapy. PAST MEDICAL HISTORY: Breast cancer. PAST SURGICAL HISTORY: Breast lumpectomy CURRENT MEDICATIONS: See list. ALLERGIES: See list. SOCIAL HISTORY: No active tobacco or alcohol use. FAMILY HISTORY: Noncontributory. REVIEW OF ORGAN SYSTEMS: CONSTITUTIONAL: Denies any fever or chills. Denies recent weight loss or weight gain. HEENT: Denies any trouble with vision, hearing or nosebleeds. No difficulty swallowing. BREASTS: Please see above. PHYSICAL EXAMINATION: Vital signs: Stable GENERAL: Well developed female and in no acute distress. Pleasant. HEENT: No sclera icterus. Extraocular movements grossly intact. Moist buccal mucosa. Head is atraumatic, normocephalic. Hears conversational speech. No nasal drainage. NECK: Supple without lymphadenopathy. No JV distention. CHEST: Non-labored respirations and equal bilateral excursions. CARDIOVASCULAR: Regular rate and rhythm. Palpable 2+ radial pulses. ABDOMEN: Nontender. MUSCULOSKELETAL: No clubbing, cyanosis or edema. NEUROLOGIC: No focal or lateralizing signs. PSYCH: Appropriate affect. Alert and oriented to person, place and time. ASSESSMENT: 1. Breast cancer. 2. Chemotherapeutic access. PLAN: 1. Port-A-Cath removal per patient's request. Past Medical History Past Medical History: Cancer, Deep Vein Thrombosis (DVT), Osteoarthritis (OA) Additional Past Medical History / Comment(s): Hx of DVT X3 during pregnancies, took heparin, RIGHT AND LEFT BREAST CANCER History of Any Multi-Drug Resistant Organisms: None Reported Past Surgical History: Breast Surgery Additional Past Surgical History / Comment(s): BILATERAL NEEDLE LOC BREAST. 1990 fibroadenoma left breast surgery. Dilatation curettage, BILAT LUMPECTOMY, Past Anesthesia/Blood Transfusion Reactions: No Reported Reaction Smoking Status: Never smoker - Past Family History Son(s) Family Medical History: Deep Vein Thrombosis (DVT), Pulmonary Embolus Brother(s) Family Medical History: Cancer Additional Family Medical History / Comment(s): COLON CANCER Medications and Allergies Home Medications Medication Instructions Recorded Confirmed Type Aspirin [Adult Low Dose Aspirin EC] 81 mg PO DAILY 02/21/19 06/20/24 History Multivitamins, Thera [Multivitamin 1 tab PO DAILY 07/14/19 06/20/24 History (formulary)] Meloxicam [Mobic] 15 mg PO DAILY 06/20/24 06/20/24 History Sertraline [Zoloft] 100 mg PO DAILY 06/20/24 06/20/24 History Allergies Allergy/AdvReac Type Severity Reaction Status Date / Time No Known Allergies Allergy Verified 06/20/24 16:22
[~2024-06-23 08:09] MED LIST changes: -DEXAMETHASONE SOD PHOSPHATE 10 MG/ML 1 ML VIAL IV ONE; -HEPARIN SODIUM,PORCINE 5,000 UNIT/ML 1 ML VIAL SQ ONE; +HEPARIN SODIUM,PORCINE 5,000 UNIT/ML 1 ML VIAL SQ PRN; -ONDANSETRON 4 MG/2 ML VIAL IVP ONE
[2024-06-23 08:46] VITALS: TEMP 97.2
[2024-06-23] MEDS: IV FLUID CONTINUATION 1,000 ML IV ONE (08:58)
[2024-06-23] MEDS: LACTATED RINGERS 1,000 ML IV SCH (08:59)
[2024-06-23] MEDS: ONDANSETRON 4 MG/2 ML VIAL IVP PRN (09:00)
[2024-06-23] MEDS: ACETAMINOPHEN TAB 500 MG TAB PO PRN (09:00)
[2024-06-23] MEDS ORDERED: fentaNYL (PF) 50 MCG/ML 2 ML AMP ONE (09:05)
[2024-06-23] MEDS ORDERED: MIDAZOLAM 2 MG/2 ML VIAL ONE (09:05)
[2024-06-23] MEDS ORDERED: PROPOFOL 10 MG/ML 20 ML VIAL IV ONE (09:05)
[2024-06-23] MEDS ORDERED: diphenhydrAMINE 50 MG/ML 1 ML VIAL ONE (09:05)
[2024-06-23] MEDS ORDERED: KETAMINE HCL IN 0.9 % NACL 50 MG/5 ML SYRINGE ONE (09:05)
[2024-06-23] MEDS: LIDOCAINE 1%-EPI 1:100,000 20 ML VIAL SQ ONE ×2 (09:10→09:39)
--- NOTE | 2024-06-23 10:18 | P.OP ---
Date of Procedure: 06/23/24 Description of Procedure: SURGEON: HARPER DIAL MD X RAY TECHNOLOGIST: None. PREOPERATIVE DIAGNOSIS: 1. Bilateral breast cancer 2. Chemotherapeutic venous access. 3. Status post chemoradiation 4. Depressive disorder 5. Obesity due to excess calories, BMI 33.6 6. History of deep venous thrombosis 7. Osteoarthritis 8. Generalized anxiety disorder POSTOPERATIVE DIAGNOSIS: 1. Bilateral breast cancer 2. Chemotherapeutic venous access. 3. Status post chemoradiation 4. Depressive disorder 5. Obesity due to excess calories, BMI 33.6 6. History of deep venous thrombosis 7. Osteoarthritis 8. Generalized anxiety disorder OPERATION: Removal of right internal jugular vein Port-A-Cath. ANESTHESIA: MAC with local ESTIMATED BLOOD LOSS: 1 mL SPECIMENS REMOVED: Port-A-Cath COMPLICATIONS: None. FINDINGS: 1. Unremarkable Port-a-cath extraction. INDICATIONS: The patient is a 69-year-old female who completed chemotherapy for breast cancer. She now has elected for removal. Benefits and risks were described. Informed consent was obtained. DESCRIPTION OF PROCEDURE: Patient was brought to the operating room, laid in supine position. After IV sedation the chest wall on the left side was prepped and draped in standard sterile fashion. Prior to incision, a timeout protocol was confirmed with surgical team regarding the patient's name including procedures to be performed. Antibiotics were given including placement of sequential compression devices for DVT prophylaxis. Attention was brought to the area of the port site, whereby local was infiltrated into the skin for a field block. A #11 blade was used to incise along the previous cicatrix. Electro- Bovie cautery was used to control for hemostasis. Adhesions were lysed around the Mediport. The port was extracted without sequelae. Pressure for 2 minutes was placed along the internal jugular vein. Hemostasis was checked along the pocket of the Port-A-Cath site. The wound was closed in layers using 3-0 Vicryl for the deep subcutaneous tissues followed by 4-0 Monocryl in a running subcuticular fashion. Dermabond was applied to the skin. Once dried a 4 x 4 Optifoam was applied. At the end of the procedure needle, sponge and instrument counts were verified correct by the ophthalmology surgical technician. The patient had tolerated the procedure well and was taken to postanesthesia care in stable condition. Plan - Discharge Summary Discharge Rx Participant: No New Discharge Prescriptions: New Acetaminophen Tab [Tylenol Tab] 1,000 mg PO Q6HR PRN #10 tablet PRN Reason: Pain Continue Aspirin [Adult Low Dose Aspirin EC] 81 mg PO DAILY Multivitamins, Thera [Multivitamin (formulary)] 1 tab PO DAILY Sertraline [Zoloft] 100 mg PO DAILY Meloxicam [Mobic] 15 mg PO DAILY Discharge Medication List Aspirin [Adult Low Dose Aspirin EC] 81 mg PO DAILY 02/21/19 [History] Multivitamins, Thera [Multivitamin (formulary)] 1 tab PO DAILY 07/14/19 [History] Meloxicam [Mobic] 15 mg PO DAILY 06/20/24 [History] Sertraline [Zoloft] 100 mg PO DAILY 06/20/24 [History] Acetaminophen Tab [Tylenol Tab] 1,000 mg PO Q6HR PRN #10 tablet 06/23/24 [Rx] Follow up Appointment(s)/Referral(s): Harper Dial MD [STAFF PHYSICIAN] - As Needed Patient Instructions/Handouts: Removal of a Central Line, PICC, or Midline Catheter (ED) Activity/Diet/Wound Care/Special Instructions: May shower. No bathtub soaks for 2 weeks until Jul 4 Remove dressing Jun 26. Sleep on elevated pillows at least 3 for 3 days. Bruising is normal and subsides in 2 weeks, Jul 4 Take Tylenol or Motrin regularly for 24 hrs for pain, if needed. Use ice along incision to decrease swelling. Discharge Disposition: HOME SELF-CARE
[2024-06-23 10:24] VITALS: BP 110/66; PULSE 70; RESP 16
== END 2024-06-23 10:56 | disposition home or self-care (01) ==
LOC: OR 08:09
PROVIDERS: ATTEND Surgery Plastic and Reconstructive Surgery
DX: C50.911 Malignant neoplasm of unspecified site of right female breast (principal); C50.912 Malignant neoplasm of unspecified site of left female breast; M19.90 Unspecified osteoarthritis, unspecified site; C88.0 Waldenstrom macroglobulinemia; F41.1 Generalized anxiety disorder; F32.A Depression, unspecified; E66.09 Other obesity due to excess calories; Z68.33 Body mass index [BMI] 33.0-33.9, adult; Z86.718 Personal history of other venous thrombosis and embolism; Z45.2 Encounter for adjustment and management of vascular access device; Z92.21 Personal history of antineoplastic chemotherapy; Z92.3 Personal history of irradiation; Z85.3 Personal history of malignant neoplasm of breast; Z80.0 Family history of malignant neoplasm of digestive organs; Z79.1 Long term (current) use of non-steroidal anti-inflammatories (NSAID); Z79.82 Long term (current) use of aspirin; Z79.899 Other long term (current) drug therapy

== ENCOUNTER → 2024-10-10 | Outpatient (CLI) | payer MEDICARE ==
--- NOTE | 2024-10-13 10:50 | MM ---
Reason for Exam: Hx of breast cancer, conservation therapy. Last mammogram was performed 1 year(s) and 2 month(s) ago. Patient History: Menarche at age 10. First Full-Term at age 29. Late child-bearing (after 29). Postmenopausal. Breast cancer, bilateral, age 64. Previous chest radiation therapy at age 64. Previous chemotherapy at age 64. 07/18/2019, Lumpectomy on the Right side. 07/18/2019, Lumpectomy on the Left side. 09/04/2021, Benign Core Biopsy on the right side. 07/18/2019, Malignant Core Biopsy on the right side. 07/18/2019, Malignant Core Biopsy on the left side. 01/23/2019, Malignant Core Biopsy on the left side. 01/23/2019, Malignant Core Biopsy on the right side. Tissue Density: There are scattered areas of fibroglandular density. Findings: Analyzed By CAD. Similar skin thickening bilaterally. Right breast. Noncalcified lesions and surgical clips. Left breast calcification and surgical clips also present. No new or enlarging mass versus calcifications. Overall Assessment: Benign, BI-RAD 2 Management: Screening Mammogram of both breasts in 1 year. Results were given to the patient verbally at the time of exam. Patient should continue monthly self-breast exams. A clinical breast exam by your physician is recommended on an annual basis. This exam should not preclude additional follow-up of suspicious palpable abnormalities. Note on Felicita scores and lifetime risk: 1. A Felicita score greater than 3% is considered moderate risk. If this is the case, consider specialist referral to assess eligibility for a risk reducing agent. 2. If overall lifetime risk for the development of breast cancer is 20% or higher, the patient may qualify for future screening with alternating mammogram and breast MRI. [facility], , 10/10/2024 2:41 PM. Electronically signed and approved by: Ashvin Brooks DO
== END | disposition home or self-care (01) ==
LOC: RADMAMWWP 13:50
PROVIDERS: ATTEND Surgery
DX: Z85.3 Personal history of malignant neoplasm of breast (principal); Z78.0 Asymptomatic menopausal state; C50.911 Malignant neoplasm of unspecified site of right female breast; C50.912 Malignant neoplasm of unspecified site of left female breast; R92.323 Mammographic fibroglandular density, bilateral breasts
CPT/HCPCS: 77066; G0279; 77062

== ENCOUNTER → 2024-10-20 | Outpatient (CLI) | payer MEDICARE ==
[2024-10-20 15:15] VITALS: BP 148/72; PULSE 82; RESP 17; TEMP 97.8
--- NOTE | 2024-10-20 15:41 | P.PN ---
Subjective Progress Note Date: 10/20/24 Principal diagnosis: right breast: IDC G2 low grade DCIS, ER+IN+Her2-T 0.8cm; 2018 left breast: IDC ER-Pr-HEr2+; T1.9cm; 2018 Subjective Progress Note Date: 10-20-24 Principal diagnosis: bilateral breast cancer surveillance history of bilateral breast cancer right breast stage IA invasive ductal carcinoma 2018 Left breast stage IIa invasive ductal carcinoma 201810-20-24 Mariam is a 69 year old female shaheen had bilateral breast cancer diagnosed in 2019. right breast: IDC G2 low grade DCIS, ER+IN+Her2-T 0.8cm; 2018 left breast: IDC ER-Pr-HEr2+; T1.9cm; 2018 Stephanie was diagnosed with bilateral breast cancer in 2019, she received neoadjuvant chemotherapy including herceptin and perjeta. She them had a bilateral lumpectomy and SNB. She then completed bilateral radiation therapy She did not tolerate hormone therapy and stopped this. Bilateral mammogram 10-10-24 BIRAD 2 The patient is not complaining of any new lumps masses or nodules of concern in either breast. port right chest wall removed Family history: Paternal grandmother: Colon cancer Brother: Colon cancer patient: bilateral breast cancer History: Menarche: 10 , 1 stillborn, first at 29, press-fit: Yes Menopause: 54 control pills: None Hormones: None Past surgical history: 1. D&C 2. Left breast fibroadenoma removed 3. Oral surgery for extra teeth 4. Bilateral lumpectomy and sentinel node biopsy Medical history: 1. Depression/anxiety. 2. DVT Social history: Smoke: Negative Alcohol: Occasional Drugs: Negative - Constitutional Constitutional: Denies chills, Denies fever - EENT Eyes: denies blurred vision, denies pain Ears: deny: decreased hearing, tinnitus Ears, nose, mouth and throat: Denies headache, Denies sore throat - Breasts Breasts: bilateral: as per HPI - Cardiovascular Cardiovascular: Denies chest pain, Denies shortness of breath - Respiratory Respiratory: Denies cough - Gastrointestinal Gastrointestinal: Denies abdominal pain, Denies diarrhea, Denies nausea, Denies vomiting - Genitourinary (Female) Genitourinary: Denies dysuria, Denies hematuria - Menstruation Menstruation: Reports postmenopausal - Musculoskeletal Comment: lumbar spine and hip pain, to have physical therapy, Musculoskeletal: Reports myalgias - Integumentary Integumentary: Denies pruritus, Denies rash - Neurological Comment: Peripheral neuropathy in the feet and hands Neurological: Reports numbness, Denies weakness - Psychiatric Psychiatric: Reports anxiety, Reports depression - Endocrine Endocrine: Reports fatigue, Denies weight change - Hematologic/Lymphatic Comment: baby aspirin - Allergic/Immunologic Allergic/Immunologic: Reports seasonal allergies Objective - Vital Signs Vital signs: Vital Signs Temp 97.8 F 10/20/24 15:11 Pulse 82 10/20/24 15:11 Resp 17 10/20/24 15:11 BP 148/72 10/20/24 15:11 Pulse Ox 97 10/20/24 15:11 FiO2 Intake & Output 10/19/24 10/20/24 10/20/24 18:59 06:59 18:59 Weight 83.915 kg - Constitutional General appearance: Present: cooperative - EENT Eyes: Present: EOMI ENT: Present: hearing grossly normal - Neck Neck: Present: normal ROM - Respiratory Respiratory: bilateral: CTA - Cardiovascular Rhythm: regular Heart sounds: normal: S1, S2 - Integumentary Integumentary: Present: normal turgor - Musculoskeletal Musculoskeletal: Present: gait normal - Psychiatric Psychiatric: Present: A&O x's 3, appropriate affect, intact judgment & insight - Additional findings Additional findings: Breast Exam: BRA: 40C inspection: port removed from the right chest; post surgical and post radiation changes bilateral breast Palpation: Right breast: Postop and postradiation changes noted no dominant masses or nodules of concern Right axilla: No adenopathy of concern Left breast: Postop and postradiation changes noted no dominate masses or nodules of concern Left axilla: No adenopathy of concern Assessment and Plan Assessment: Impression: Patient status post bilateral lumpectomy and sentinel node biopsy. No evidence of any recurrent cancer. Bilateral mammogram 10-10-24 benign BIRADS 2 Plan: Bilateral mammogram in Oct 2025 follow up after mammogram Follow up sooner any questions or concerns Patient has opted not to take the anti-hormone medication secondary to bone pain we will continue to follow her closely follow up with general surgery for port removal CC: Dr. Lizarraga
== END ==
LOC: WWCWWP 14:20
PROVIDERS: ATTEND Surgery
DX: Z90.12 Acquired absence of left breast and nipple (principal); R92.8 Other abnormal and inconclusive findings on diagnostic imaging of breast

== ENCOUNTER → 2025-02-19 | Outpatient (CLI) | payer MEDICARE ==
[2025-02-19 16:53] LABS: Basophils # (A) 0.05 X 10*3/uL (0.00-0.10); Basophils % (A) 0.9 %; Eosinophils # (A) 0.27 X 10*3/uL (0.04-0.35); Eosinophils % (A) 4.7 %; HGB 14.9 g/dL (12.0-15.0); Lymphocytes # (A) 1.17 X 10*3/uL (0.90-5.00); Lymphocytes % (A) 20.2 %; MCHC 33.1 g/dL (32.0-37.0); MCV 90.7 FL (80.0-97.0); Mean Platelet Volume 10.4 FL (9.5-12.2); Monocytes % (A) 8.6 %; NRBC Per 100 WBC 0 X 10*3/uL (0.00-0.01); Neutrophils # (A) 3.79 X 10*3/uL (1.80-7.70); Neutrophils % (A) 65.4 %; Platelet Count 256 X 10*3/uL (140-440); RBC 4.96 X 10*6/uL (4.10-5.20); RDW 13.3 % (11.5-14.5); WBC 5.79 X 10*3/uL (4.50-10.00)
[2025-02-19 17:10] LABS: ALT 20 U/L (8-44); AST 19 U/L (13-35); Albumin 4.7 g/dL (3.8-4.9); Albumin/Globulin Ratio 2.04 Ratio (1.60-3.17); Alkaline Phosphatase 93 U/L (41-126); BUN/Creat Ratio 38.17 Ratio (12.00-20.00); Blood Urea Nitrogen 22.9 mg/dL (9.0-27.0); Calcium 9.6 mg/dL (8.7-10.3); Carbon Dioxide 26.4 mmol/L (21.6-31.8); Chloride 103 mmol/L (96-109); Chol/HDL Ratio 3.21 Ratio; Globulin 2.3 g/dL (1.6-3.3); Glucose 108 mg/dL (70-110); LDL Cholesterol,Calculated 123.6 mg/dL (0.0-131.0); Potassium 4.7 mmol/L (3.5-5.5); Sodium 140 mmol/L (135-145); Total Bilirubin 0.6 mg/dL (0.3-1.2); VLDL Calculation 19.56 mg/dL (5.00-40.00)
== END | disposition home or self-care (01) ==
LOC: LABWHC1 11:32
PROVIDERS: ATTEND Internal Medicine
DX: Z00.00 Encounter for general adult medical examination without abnormal findings (principal); M85.80 Other specified disorders of bone density and structure, unspecified site
CPT/HCPCS: 36415; 80053; 80061; 82306; 84443; 85025